=== PATIENT | female | born 1965 | race Caucasian/White ===

== ENCOUNTER 2025-07-13 10:50 | Outpatient (AMB) | payer OTHER, SELFPAY ==
--- OUTSIDE RECORDS SUMMARY | 2024-07-08 13:30 | XMS_ITS | Encounter Summary ---
Author Organization [facility] [place] [address] Care Team Providers Care Collision Center Manager Name Role Phone Brittanie Pearson MD Primary Care Provider [phone] Encounter Details Date Type Department Care Team (Latest Contact Info) Description 07/08/2024 1:30 PM EDT Hospital Encounter TH HISTORIC ENCOUNTERS EASTERN CONVERSION ONLY Age-related osteoporosis without current pathological fracture Social History Tobacco Use Types Packs/Day Years Used Date Smoking Tobacco: Never Smokeless Tobacco: Never Alcohol Use Standard Drinks/Week Comments Never 0 (1 standard drink = 0.6 oz pur e alcohol) Housing Instability Answer Date Recorde d Are you worried that in the next 2 months you may not have stable housing? Unable to respond 01/04/2025 Food Access & Nutrition Answer Date Rec orded Do you have access to a vari ety of food including fruits and vegetables? Unable to respond 01/04/2025 Health Literacy Answer Date Recorded How often do you need to hav e someone help you when you read instructions, pamphlets, or other written material from your doctor or pharmacy? Unable to respond 01/04/2025 Caregiver: How often do you need to have someone help you when you read instructions, pamphlets, or other written material from your doctor or pharmacy? Not on file 025 Financial Risk Answer Date Recorded How hard is it for you to pa y for the very basics like food, housing, medical care, and air conditioning / heating? Unable to respond 01/04/2025 Transportation Answer Date Recorded Has the lack of transportati on kept you from meetings, work, or from getting things needed for daily living? Unable to respond 01/04/2025 Has the lack of transportati on kept you from medical appointments or from getting medications? Unable to respond 01/04/2025 Social Isolation Answer Date Recorded How often do you feel lonely or isolated from those around you? Unable to respond 01/04/2025 Food Risk Answer Date Recorded Within the past 12 months we worried whether our food would run out before we got money to buy more. Unable to respond 025 Within the past 12 months th e food we bought just didn't last and we didn't have money to get more. Unable to respond 04/2025 Dependent Care Answer Date Recorded Do you need help finding or paying for care for your loved ones. For example, early childhood educator aide or elderly care for an older adult? Unable to respond 01/04/2025 Education Answer Date Recorded Do you think completing more education or training, like finishing a GED, going to college, or learning a trade, would be helpful for you? Unable to respond 01/04/2025 Employment and Income Answer Date Recor ded During the last four weeks, have you been actively looking for work? Unable to respond 01/04/2025 Living Situation Answer Date Recorded What is your living situation? Unrecognized valu e 01/04/2025 Comments No Sex and Gender Information Value Date Recorded Sex Assigned at Not on file Legal Sex Female 8:32 PM EST Gender Identity Not on file Sexual Orientation Not on file documented as of this encounter Progress Notes * Historical, Notes Results - 07/08/2024 1:30 PM EDT Pt arrives for reclast infusion with her father . Pt assessed and reports she understands she will possibly receive this yearly for her diagnosis of osteoporosis. Pt and this nurse reviewed possible side effects - pt verbalized understanding . Labs assessed - okay to treat . IV inserted, pt tolerated well. Reclast infused without issue . Line flushed and angio removed . Pt reports feeling well. Pt discharged with her father , gait steady . documented in this encounter Plan of Treatment Upcoming Encounters Date Type Department Care Team (Late st Contact Info) Description 07/22/2025 11:00 AM EDT Office Visit Internal Medicine - [place] [address] [place] [phone] Prema Lizraraga MD [address] [place] [address] 07/22/2025 1:00 PM EDT Treatment [facility] [address] [phone] Jax Pickett, SKI BASE TRIMMER 07/27/2025 11:30 AM EDT Treatment [facility] [address] [address] Dalton Matta, PT [address] [place] [address] 07/29/2025 12:30 PM EDT Treatment [facility] [address] [phone] Jax Pickett, SKI BASE TRIMMER 08/03/2025 11:30 AM EST Treatment [facility] [address] [phone] Dalton Matta, PT [address] [place] [address] 08/05/2025 10:00 AM EST Treatment [facility] [address] [address] Jax Pickett, SKI BASE TRIMMER 08/10/2025 9:00 AM EST Treatment [facility] [address] [address] Juanjo Fairbanks, SKI BASE TRIMMER 08/17/2025 9:00 AM EST Treatment [facility] [address] [address] Dalton Matta, PT [address] [place] [address] 12/26/2025 11:00 AM EDT Office Visit Endocrinology - [place] [address] [place], [place] [phone] Joann Bustos PA [address] [place], [place] documented as of this encounter Goals Goal Patient Goal Type Associated Problems Recent Progress Patient-Stated? Author feel better General Yes Dalton Matta, PT PT STG x 8 visits from [facility] on 07/06/2025 General No Dalton Matta, PT Note: [x] = goal MET [] = goal NOT MET [] Pt will improve bilaterally trunk sidebend to 28 degrees, [] Pt will report average pain level decrease of 2 /10, [] Pt will increase sitting capacity to 90 minutes, [] Pt will be able to perform full bridge in order to improve bed mobility [] Pt will improve hip add strength to 3+/5B NECK [] Pt will report a 2/10 average pain level decrase, [] Pt will improve C rotation to 40 deg to aid in looking over L shoulder, [] Pt will improve deep neck flexor strength to 10 seconds (2 at [facility]) PT LTG x 16 visits from [facility] on 07/06/2025 General No Dalton Matta, PT Note: [x] = goal MET [] = goal NOT MET [] Pt will be able to sit through a 2hr movie [] Pt will not require assist to make the bed [] Pt will wake no more than 1 x/night due to back pain Neck [x] = goal MET [] = goal NOT MET [] Pt will wake <1/night due to neck pain , [] Pt will improve shoulder ER strength to 4+/5, [] Pt will be able to look over shoulder without requiring trunk rotation, [] Pt will be able to lift cat litter box without limitations due to neck pain documented as of this encounter Procedures Procedure Name Priority Date/Time Associated Diagnosis Comments ..MISCELLANEOUS REFERENCE LAB TEST 07/08/2024 documented in this encounter Results * Miscellaneous reference lab test (07/08/2024) us Provider Onbase MD LAB BLOOD ORDERABLES Final Re sult documented in this encounter Visit Diagnoses Diagnosis Age-related osteoporosis without current pathological fracture documented in this encounter Care Teams Collision Center Manager Relationship Specialty Start Date End Date Brittanie Pearson MD PCP - General 04/24/23 01/04/25 documented as of this encounter
--- OUTSIDE RECORDS SUMMARY | 2025-07-11 15:30 | XMS_ITS | Encounter Summary ---
Author Organization [facility] Address [address] [place] [address] Care Team Providers Care Production Scheduler Name Role Phone Prema Lizarraga MD Primary Care Provider [phone] Reason for Visit * Consultation (Routine) - Authorized Specialty Diagnoses / Procedures Referred By Contac t Referred To Contact Physical Therapy Diagnoses Degenerative disc disease, cervical Degeneration of intervertebral disc of lumbar region with discogenic back pain Leroy Hazel PA 175 [facility] [address] [place] [address] Phone: tel: fax: Referral ID Status Reason Start Date Expiration Date Visits Requested Visits Authorized [id number] Authorized Specialty Services Required 06/08/2025 06/08/2026 20 20 Encounter Details Date Type Department Care Team (Latest Contact Info) Description 07/11/2025 3:30 PM EDT Treatment [facility] 175 [facility] [address] [place] [phone] Jax Pickett PTA Degeneration of cervical intervertebral disc (Primary Dx); Degeneration of intervertebral disc of lumbar region with discogenic back pain Social History Tobacco Use Types Packs/Day Years [...] care for your loved ones. For example, child welfare specialist or elderly care for an older adult? [...] as of this encounter Progress Notes * Jax Pickett, REMEDIATION PROJECT ENGINEER - 07/11/2025 3:30 PM EDT [facility] - Outpatient PHYSICAL THERAPY DAILY TREATMENT NOTE - OP Date: 07/11/2025 Visit Number: 2 Patient Name: Rosa Shah : 1965 Age: 59 y.o. Gender: female Diagnosis: ICD-10-CM ICD-9-CM 1. Degeneration of cervical intervertebral disc M50.30 722.4 2. Degeneration of intervertebral disc of lumbar region with discogenic back pain M51.360 722.52 Date of Onset/Surgery: 06/08/2025 Referring Provider: Leroy Hazel PA Insurance: Payor: [facility] MEDICARE ADVANTAGE / Plan: [employer] MEDICARE ADVANTAGE / Product Type: *No Product type* / Patient Identified by: Jax Pickett PTA Language: Speaks and understands Mexican as preferred language with no monorail operator required Medications: Medications Ordered Prior to Encounter[1] Allergies: is allergic to acetaminophen-codeine, dextrose, methadone, psyllium, psyllium husk, and sucrose. Precautions: Parkinson's, osteoporosis, fusion C 4-7. and L laminectomy with hardware R hip replacement. Limited tolerance to extension Avoid prone Fall risk: No SUBJECTIVE Subjective Report: Patient reports increased pain after last visit. She is seeing oral surgeon later this week, PCP thinks it may be TMJ Chart Reviewed: Yes Pain: 8/10 no change. TREATMENT INTERVENTION: Manual Therapy STM, MFR seated UT, cervical paraspinals HL STM, MFR TMJ, OA HL gentle cervical Rotation Assisted TPM release using lacrosse ball Attempted CP to help decrease burning pain decreased tolerance to cold approx 5 mins before discontinuing modality. ASSESSMENT/Response to Treatment Fair tolerance with DTM, MFR left side of neck. Patient seeing Oral Surgeon for assessment of teethremoval and TMJ symptoms. Patient pain is constant often promoting horrible WILEY. Progress as tolerated. Patient Education: Education provided: yes no changes this visit with HEP. Education Provided To: Patient utilizing Demonstration mode(s) of education Response to Education: Verbal Understanding PLAN POC Development/Review: No Change in the Plan of Care; Participants: Patient Interventions Time Entry: Modalities: Therapeutic procedures: Manual Therapy Time Entry: 30 Total Treatment Time: 30 mins Documentation completed by Jax Pickett PTA [1] Current Outpatient Medications on File Prior to Visit Medication Sig Dispense Refill ALPRAZolam (XANAX) 0.5 mg tablet Take 1 tablet (0.5 mg total) by mouth 1 (one) time each day. amantadine (SYMMETREL) 100 mg tablet Take 1 tablet (100 mg total) by mouth 2 (two) times a day. for30 days carbidopa-levodopa (SINEMET) 25-100 mg per tablet Take 1.5 tablets by mouth 5 (five) times a day. denosumab (PROLIA) 60 mg/mL syringe syringe Inject 1 mL (60 mg total) under the skin 1 (one) time for 1 dose. 1 mL 0 entacapone (COMTAN) 200 mg tablet Take 1 tablet (200 mg total) by mouth 3 (three) times a day. gabapentin (NEURONTIN) 100 mg capsule Take 1 capsule (100 mg total) by mouth 3 (three) times a day.90 capsule 1 Inbrija 42 mg capsule, w/inhalation device Place 2 capsules into inhaler and inhale 3 (three) timesa day if needed. levothyroxine (SYNTHROID, LEVOTHROID) 125 mcg tablet Take 1 tablet (125 mcg total) by mouth 1 (one)time each day. 90 tablet 1 sertraline (ZOLOFT) 100 mg tablet Take 2 tablets (200 mg total) by mouth 1 (one) time each day. zolpidem (AMBIEN) 10 mg tablet Take 5 mg by mouth at bedtime as needed. No current facility-administered medications on file prior to visit. documented in this encounter Plan of Treatment Upcoming Encounters Date Type Department Care Team (Late st Contact Info) Description 07/22/2025 11:00 AM EDT Office Visit Internal Medicine - [place] [address] [place] [phone] Prema Lizarraga MD [address] [place] [address] 07/22/2025 1:00 PM EDT Treatment [facility] - [address] [phone] Jax Pickett PTA 07/27/2025 11:30 AM EDT Treatment [address] [address] Dalton Matta, PT [address] [place] [address] 07/29/2025 12:30 PM EDT Treatment [address] [address] Jax Pickett, REMEDIATION PROJECT ENGINEER 08/03/2025 11:30 AM EST Treatment [address] [phone] Dalton Matta, PT [address] [place] [address] 08/05/2025 10:00 AM EST Treatment [address] [address] Jax Pickett, REMEDIATION PROJECT ENGINEER 08/10/2025 9:00 AM EST Treatment [address] [address] Juanjo Fairbanks, REMEDIATION PROJECT ENGINEER 08/17/2025 9:00 AM EST Treatment [address] [address] Dalton Matta, PT [address] [place] [address] 12/26/2025 11:00 AM EDT Office Visit Endocrinology - [place] [address] [place] [phone] Joann Bustos PA [address] [place], [place] documented as of this encounter Goals Goal Patient Goal Type Associated Problems Recent Progress Patient-Stated? Author feel better General Yes Dalton Matta, PT PT STG x [address] [facility] on 07/06/2025 General No Dalton Matta, PT [...] flexor strength to 10 seconds ([address] [facility]) PT LTG x [address] [facility] on 07/06/2025 General No Dalton Matta M, PT Note: [x] = goal MET [] [...] neck pain documented as of this encounter Visit Diagnoses Diagnosis Degeneration of cervical intervertebral disc- Primary Degeneration of intervertebral disc of lumbar region with discogenic back pain documented in this encounter Additional Health Concerns Assessment Noted Time PHQ-9 Depression Total Score: 7 01/20/20 3:55 PM EDT A fall risk assessment has been complete d for the patient 01/20/2025 10:53 AM EDT documented as of this encounter Care Teams Production Scheduler Relationship Specialty Start Date End Date Prema Lizarraga MD [address] [place] [address] PCP - General Family Medicine 01/05/25 documented as of this encounter
--- NOTE | 2025-07-13 10:52 | A.OFFVIS_ITS ---
Intake Visit Reasons: 6 mo fu Allergies psyllium (From Metamucil) Allergy (Unknown, Verified 07/13/25 10:52) Unknown Medication List - Last Reconciled 07/13/25 by Katie Alvarado CNP alprazolam 0.5 mg PO DAILY PRN amantadine HCl 100 mg PO BID carbidopa-levodopa 25-100 mg orally 1.5 tablets five times a day; entacapone 200 mg PO QID gabapentin 100 mg PO TID levodopa (Inbrija) mg inhalation levothyroxine 125 mcg PO DAILY sertraline 200 mg PO DAILY zolpidem 5 mg PO DAILY PRN HPI Comments Details: She was having more involuntary body movements and swaying. No falls. Has trouble turning in bed. In PT for neck pain. She is right-handed and says handwriting is terrible again. She needs family to fill out paperwork for her. She is unable to use computer mouse with right hand and has been having to use left hand. Unpredictable off periods, which she calls sloth periods. Using Inbrija between 0-3x/day as needed which works within 15 minutes. Taking carbidopa-levodopa 25-100mg 1.5 tablets five times a day, entacapone 200mg four times a day, and amantine 100mg twice a day. Previously was using Inbrija 1x/day or less, usually twice a week, works in 10- 15 minutes. Has unpredictable off periods. Still getting the sloth and at times needs to use a cane. She can suddenly get an off period where she can barely move. It can last up to 2 hours. Previously, dyskinesia was better. She had multiple cervical and lumbar spine surgeries over the years. Fusion with hardware who was hospitalized in 2009 and was diagnosed with various things at one point, possible MS but then in 2013 was diagnosed with Parkinson's disease with right-sided tremor and increased tone. 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 At one time should also developed a right foot drop and has calf atrophy on the right, probably related to lumbar radiculopathy. She has periods where she can't move what she calls moving like a sloth. 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 [facility] Medical History (Updated 07/13/25 @ 11:03 by Katie Alvarado CNP) Kidney stone Depression Anxiety Hypothyroidism Surgical History (Updated 07/13/25 @ 11:03 by Katie Alvarado CNP) History of total right knee replacement S/P carpal tunnel release S/P lumbar discectomy S/P cervical discectomy Review of Systems Const Denies chills, Denies daytime sleepiness, Reports difficulty sleeping, Denies fatigue, Denies fever(s), Denies frequent falls, Denies headache(s), Denies increased appetite, Denies poor appetite, Denies snoring, Denies weakness, Denies weight gain and Denies weight loss Eyes Denies loss of vision ENT Denies vertigo, Denies dizziness, Denies headache(s) and Reports neck pain Card Denies chest pain at rest, Denies chest pain with activity, Denies syncope, Denies leg edema, Denies palpitations, Denies dyspnea and Denies dyspnea on exertion Resp Denies cough, Denies dyspnea, Denies dyspnea on exertion and Denies snoring GI Denies abdominal pain, Denies constipation, Denies heartburn, Denies diarrhea and Denies nausea Denies urinary frequency, Denies urinary incontinence and Denies urinary urgency Musc Reports abnormal gait (balance difficulty), Reports back pain, Reports myalgias, Reports arthralgias, Reports neck pain, Denies numbness and Denies tingling Neuro Reports abnormal gait (balance difficulty), Denies vertigo, Denies dizziness, Denies syncope, Denies frequent falls, Denies headache(s), Denies lack of coordination, Denies loss of vision, Denies memory loss, Denies numbness, Denies Other visual disturbances, Denies restless legs, Denies seizure-like activity, Denies tingling, Denies paresthesias, Reports tremor(s) and Denies weakness Psych Reports anxiety, Reports depression, Denies auditory hallucinations, Denies memory loss and Denies visual hallucinations Endo Denies fatigue and Denies palpitations Physical Exam Const Other: General Appearance:? normal, in no acute distress. Heart:? S1, S2 normal, no murmurs. Lungs:? clear anteriorly and posteriorly. Musculoskeletal:? normal. Extremities:? no edema. Psych:? alert, oriented, cognitive function intact, cooperative with exam. Neuro Other: Abnormal Neurological Findings:?Moderate dyskinetic movements of her limbs, trun k, and neck. Minimally increased tone on R side with slight cogwheeling at the wrist. Atrophy of R calf with absent R ankle reflex. Mental Status: alert and oriented X 3. Normal attention, orientation, memory, and affect. Cranial Nerves: Pupils are equal, round, and reactive to light. External ocular muscles are intact. Visual hardy are full, no ptosis. Face is symmetrical, no facial weakness or droop. Facial sensations are normal. Tongue protrudes in midline. Palate elevates symmetrically. Shoulder shrugging is normal Motor Examination: As above. Sensory Exam: Normal light touch, temperature, pinprick, vibration, and joint- position sensations. Rhomberg sign is absent. Coordination: No ataxia. No titubation. Gait Exam: Within normal limits. Cerebellar Signs: [id number] is okay. Extrapyramidal System: As above. Speech: Normal. Assessment & Plan Assessment & Plan (1) Parkinsons disease: Code(s): G20.A1 - Parkinson's disease without dyskinesia, without mention of fluctuations Category: Medical Qualifiers: Dyskinesia presence: with dyskinesia Fluctuating manifestations: with fluctuating manifestations Qualified Code(s): G20.B2 - Parkinson's disease with dyskinesia, with fluctuations Plan: Decrease carbidopa-levodopa 25-100mg alternate 1.5 tablets and 1 tablet for five doses/day (total of 6.5 tabs/day). Continue entacapone 200mg 1 tablet four times a day. Continue amantadine 100mg 1 capsule twice a day. Continue Inbrija 42mg inhale contents of 2 capsules via inhalation device 1- 2x/day as needed #60 for 30 days Medications: New carbidopa-levodopa 25-100 mg (Sinemet) 1 tab orally alternate 1.5 tabs and 1 tab five times a day for total of 6.5 tabs/day; 585 tabs 1RF 90 days Coding Level of Care Code Est Pt Level 4 (23811) Diagnoses Parkinson's disease with dyskinesia and fluctuating manifestations G20.B2 Dyskinesia presence: with dyskinesia Fluctuating manifestations: with fluctuating manifestations
--- OUTSIDE RECORDS SUMMARY | 2025-07-13 13:13 | XMS_ITS | Clinical Summary ---
Author Organization [facility] [address] [place] [address] [place] [phone] Phone Care Team Providers Care Mechanic Foreman Name Role Phone Prema Lizarraga MD Primary Care Provider [phone] Allergies Active Allergy Reactions Criticality Noted Date Comments Acetaminophen-Codeine Itching High 01/10/2025 Dextrose Anaphylaxis High 11/29/2004 Methadone Pain High 01/10/2025 Psyllium Anaphylaxis High 11/04/2023 Psyllium Husk Anaphylaxis High 11/29/2004 Sucrose Anaphylaxis High 11/29/2004 Medications entacapone (COMTAN) 200 mg tablet Take 1 tablet (200 mg total) by mouth 3 (three) times a day. 05/31/20 24 Active amantadine (SYMMETREL) 100 mg tablet Take 1 tablet (100 mg total) by mouth 2 (two) times a day. for 30 days Active sertraline (ZOLOFT) 100 mg tablet Take 2 tablets (200 mg total) by mouth 1 (one) time each day. 06/15/20 24 Active ALPRAZolam (XANAX) 0.5 mg tablet Take 1 tablet (0.5 mg total) by mouth 1 (one) time each day. Active zolpidem (AMBIEN) 10 mg tablet Take 5 mg by mouth at bedtime as needed. Active carbidopa-levodopa (SINEMET) 25-100 mg per tablet Take 1.5 tablets by mouth 5 (five) times a day. Active Inbrija 42 mg capsule, w/inhalation device Place 2 capsules into inhaler and inhale 3 (three) times a day if needed. Active levothyroxine (SYNTHROID, LEVOTHROID) 125 mcg tablet Take 1 tablet (125 mcg total) by mouth 1 (one) time each day. 90 tablet 1 03/19/20 25 Active gabapentin (NEURONTIN) 100 mg capsuleIndications :Degenerative disc disease, cervical,Degenerat ion of intervertebral disc of lumbar region with discogenic back pain Take 1 capsule (100 mg total) by mouth 3 (three) times a day. 90 capsule 1 06/14/20 25 Active denosumab (PROLIA) 60 mg/mL syringe syringeIndications :Osteoporosis without current pathological fracture, unspecified osteoporosis type Inject 1 mL (60 mg total) under the skin 1 (one) time for 1 dose. 1 mL 06/13/20 25 Active gabapentin (Neurontin) 100 mg capsuleIndications :Degenerative disc disease, cervical,Degenerat ion of intervertebral disc of lumbar region with discogenic back pain Take 1 capsule (100 mg total) by mouth 3 (three) times a day. 90 each 05/13/20 25 025 Discontinued Active Problems Problem Noted Date Diagnosed Date Right lower quadrant abdominal mass 05/13/2025 Assessment & Plan (05/13/2025 2:55 PM EDT): - Lump could be a lipoma or muscle tension; it is not painful and only appears at night - Advised to monitor the lump for any changes in size or pain - If it becomes larger or painful, an ultrasound will be considered Degeneration of intervertebr al disc of lumbar region with discogenic back pain 04/29/2025 Assessment & Plan (06/08/2025 4:35 PM EDT): Ms. Shah describes chonic transverse low back pain without radiation to the legs. She is neurologically intact in the lower extremities. An MRI of the lumbar spine from June 01, 2025 shows evidence of her prior Coflex devices at L3-4 and L4-5. A little bit of anterolisthesis at L4-5. Generative changes in the discs and facets resulted in moderate to severe canal and foraminal stenosis at L4-5. She would not want to consider any kind of surgery at this time and I would agree with her. I did give her a prescription for physical therapy directed at the low back. We are also going to obtain some x-rays of her lumbar spine to make sure there is no abnormal motion with flexion or extension views. She will follow-up with us after the physical therapy. Assessment & Plan (05/13/2025 2:54 PM EDT): - Increase current low dose of gabapentin to three times daily to alleviate discomfort - MRI scheduled for 06/01/2025 to further investigate the cause of pain - Prescription for gabapentin sent to pharmacy - Will look into PA for lidocaine patch Assessment & Plan (04/29/2025 3:04 PM EDT): - Likely due to previous surgeries and injuries, exacerbated by history of spinal cord changes - Significant pain in lumbar region, affecting daily activities and sleep - Order MRI of lower back for further evaluation - Initiate physical therapy for lumbar spine - Prescribe Gabapentin 100 mg at night, with potential for dosage increase based on tolerance - Prescribe lidocaine patch 5% for additional pain management Degenerative disc disease, cervical 04/29/2025 Assessment & Plan (06/08/2025 4:29 PM EDT): Ms. Shah describes neck pain more on the left side with radiation to the jaw and the ear. She also has some pain in the right triceps that travels down to the right posterior wrist. She is status post C4-7 anterior cervical fusion. She is neurologically intact other than the cardinal motor signs associated with her Parkinson's disease. Can MRI the cervical spine on 06/01/2025 revealed that her C4-C7 anterior cervical fusion is intact. She has multilevel degenerative changes most significant at C4-5 where there is severe bilateral foraminal stenosis and moderate canal stenosis. I told her that I thought the left jaw and ear symptoms were likely related to TMJ. She is actually seeing her dentist tomorrow and will discuss it with them. I am going to check some x-rays of the cervical spine and send her for physical therapy for her neck and low back. She will follow-up with us afterward. Assessment & Plan (04/29/2025 3:00 PM EDT): - Likely due to previous surgeries and injuries, exacerbated by history of degenerative disc disease - Significant pain in cervical spine, shoulders, and arms, with associated numbness in right hand - Order MRI of cervical spine for further evaluation - Referral to neurosurgery for follow-up consultation - Initiate physical therapy for cervical spine - Prescribe Gabapentin 100 mg at night, with potential for dosage increase based on tolerance - Prescribe lidocaine patch 5% for additional pain management Lumbar postlaminectomy syndrome 03/08/2025 Left arm swelling 01/28/2025 Assessment & Plan (01/28/2025 8:42 AM EDT): - Lump on left arm likely a reaction to pneumonia vaccine administered on 01/20/2025 - Lump appears to be improving compared to initial photo - Apply ice to affected area once daily - Alternate between ice and warm compresses - Monitor lump for any changes in size - Return for further evaluation if lump increases in size Medicare annual wellness visit, subsequent 01/20 Assessment & Plan (01/20/2025 12:55 PM EDT): - Last mammogram in February 2024, due for another one - Last Pap smear in 2013, with past abnormal results - Last colonoscopy in March 2023, follow-up recommended in five years - Has not received shingles vaccine, advised to get it at an outside pharmacy Anxiety 01/19/2025 Elevated ratio of cholestero l to high density lipoprotein (HDL) 01/19/2025 Hydronephrosis 01/19/2025 Thoracic degenerative disc disease 01/10/2025 Assessment & Plan (01/20/2025 12:54 PM EDT): - Reports improvement since last visit but still experiences occasional pain - Uses back brace and topical analgesics for relief - Physical therapy expected to strengthen back and alleviate pain Assessment & Plan (01/19/2025 4:08 PM EDT): Ms. Shah describes pain with mid back pain a couple of weeks ago. Denies radiation around to the anterior chest. Pain does not have any correlation with her breathing pattern. She has a history of multiple cervical spine and lumbar surgeries. She says that in the past she had an MRI in [place] that showed a thoracic disc herniation. Is neurologically intact and is not myelopathic. X-rays of the thoracic spine from [place] dated January 10, 2025 show multilevel degenerative changes in the thoracic spine with loss of disc height and exaggerated kyphosis. I gave her prescription for physical therapy. If she is not better after the therapy we can certainly consider a new MRI. Assessment & Plan (01/10/2025 1:25 PM EDT): - Severe back pain began night, rated 10/10 in intensity - History of degenerative disc disease with disc bulge around T8-T9 (MRI from 2010) - Likely due to underlying condition - Using Flexeril 10 mg at night and Tylenol 500 mg as needed for pain relief - Continue with Tylenol and warm compresses - Lidocaine patch may be used if pain becomes intolerable, she can not tolerate NSAIDS secondary to nausea. - Order x-ray of thoracic given bony tenderness on exam today - Referral to physical therapy - Referral to neurosurgeon for further evaluation Encounter to establish care 01/05/2025 Assessment & Plan (01/05/2025 3:51 PM EDT): Patient is a 59 y.o. female with pmhx hypothyroidism, osteoporosis, anxiety/depression, Parkinson's disease who presents to establish care. Vital signs notable for blood pressure in the lower range and physical exam wnl - Last mammogram conducted in February 2024 - Wellness visit to be scheduled - Blood work to be ordered today to assess thyroid levels and cholesterol levels - Advised to fast prior to blood work, abstaining from food intake after midnight Hypothyroidism 11/04/2023 Insomnia 11/04/2023 Kidney stone 11/04/2023 Major depressive disorder in partial remission (CMS/[facility] V24) 11/04/2023 Assessment & Plan (01/05/2025 3:54 PM EDT): - Currently seeing a psychologist twice a week and a nurse practitioner for psychiatric medication management - Medications: Zoloft 200 mg daily, Ambien 5 mg as needed for sleep, Xanax 1 mg as needed for anxiety - Experiences severe depression episodes - Recently had a four-day episode where she stayed in bed - Encouraged to engage in physical activities such as boxing for Parkinson's - Plans to discuss physical activities with neurologist OCD (obsessive compulsive disorder) 11/04/2023 Osteoporosis 11/04/2023 Assessment & Plan (05/13/2025 2:55 PM EDT): - Scheduled to see an instrument mechanics supervisor in 05/2025 to start osteoporosis medication due to adverse reaction to infusion - Last bone density screening was in 2023 Assessment & Plan (01/20/2025 12:56 PM EDT): - She was previously on Reclast, follows with endo - Test Examiner plans to switch to oral medication after checking vitamin D levels in February or March Assessment & Plan (01/05/2025 3:52 PM EDT): - Diagnosed last year after previously having osteopenia - Had an infusion in June but experienced a bad reaction - Test Examiner plans to start her on medication instead of another infusion in the fall Parkinson's disease ([facility] V24, [facility] V28) 0 11/04/2023 Assessment & Plan (01/20/2025 12:55 PM EDT): - Remains fairly independent in activities of daily living (dressing, bathing, driving) - Manages symptoms with carbidopa-levodopa, takes extra doses during off times to drive safely Assessment & Plan (01/05/2025 3:53 PM EDT): - Diagnosed in 2013 after initially being misdiagnosed with MS - Currently stable on medications: carbidopa-levodopa, amantadine 100 mg twice a day, Inbrija inhaler for off time, Comtan (entacapone) 200 mg - Sees neurologist every four months - Follow-up appointment next week Anxiety and depression 11/04/2023 PTSD (post-traumatic stress disorder) 11/04/2023 History of total right hip replacement Chronic back pain 01/09/2021 Hyperlipidemia 01/09/2021 Encounters Date Type Department Care Team Description 07/11/2025 3:30 PM EDT Treatment [address] [phone] Jax Pickett PTA Degeneration of cervical intervertebral disc (Primary Dx); Degeneration of intervertebral disc of lumbar region with discogenic back pain 07/06/2025 3:45 PM EDT Evaluation [address] [phone] Dalton Matta PT Degeneration of cervical intervertebral disc (Primary Dx); Degeneration of intervertebral disc of lumbar region with discogenic back pain 07/05/2025 Results Follow-Up Endocrinology - [address] [phone] MD 06/16/2025 Telephone Neurosurgery [address] [phone] Leroy Hazel PA 06/13/2025 11:57 AM EDT - 06/13/2025 11:59 PM EDT Hospital Encounter XRAY - [address] [phone] Degeneration of intervertebral disc of lumbar region with discogenic back pain Discharge Disposition: Home or Self Care 06/13/2025 11:55 AM EDT - 06/13/2025 11:59 PM EDT Hospital Encounter XRAY - [address] [phone] Degenerative disc disease, cervical Discharge Disposition: Home or Self Care 06/13/2025 11:15 AM EDT Office Visit Endocrinology - [address] [phone] MD Osteoporosis without current pathological fracture, unspecified osteoporosis type (Primary Dx) 06/08/2025 11:30 AM EDT Office Visit Neurosurgery [address] [phone] Leroy Hazel, GODWIN Degenerative disc disease, cervical; Degeneration of intervertebral disc of lumbar region with discogenic back pain 06/01/2025 11:17 AM EDT - 06/01/2025 11:59 PM EDT Hospital Encounter Radiology Department - [place] [phone] Degeneration of intervertebral disc of lumbar region with discogenic back pain Discharge Disposition: Home or Self Care 06/01/2025 11:17 AM EDT - 06/01/2025 11:59 PM EDT Hospital Encounter Radiology Department - [address] [phone] Degenerative disc disease, cervical Discharge Disposition: Home or Self Care 05/19/2025 Telephone Neurosurgery [place] - [address] [place] [address] Anel Loredo MA 05/13/2025 2:30 PM EDT Office Visit Internal Medicine - [place] [address] [place] [address] Prema Lizarraga MD Degeneration of intervertebral disc of lumbar region with discogenic back pain (Primary Dx); Degenerative disc disease, cervical; Osteoporosis, unspecified osteoporosis type, unspecified pathological fracture presence; Right lower quadrant abdominal mass 05/13/2025 Telephone Internal Medicine - [place] [address] [place] [phone] Val Scott RN 04/29/2025 1:00 PM EDT Office Visit Internal Medicine - [place] [address] [place] [address] Prema Lizarraga MD Degenerative disc disease, cervical (Primary Dx); Degeneration of intervertebral disc of lumbar region with discogenic back pain from Last 3 Months Immunizations Immunization Administration Dates Next Due Influenza, Unspecified 07/01/2023 Pneumococcal conjugate 20 va lent (Prevnar 20, PCV 20) 2mo and older 01/20/2025 Tdap Tetanus diptheria acell ular pertussis (Boostrix; Adacel) 7yo and older 12/03/2023,12/31/2007 Surgical History Surgery Date Site/Laterality Comments CARPAL TUNNEL RELEASE 09/23/2022 PROCEDURE: HISTORICAL CARPAL TUNNEL REL; COMMENT: Good finger/carpal tunnel/compress nerve surgery HIP ARTHROPLASTY 01/22/2021 PROCEDURE: HISTORICAL HIP REPLACEMENT; COMMENT: Right side LUMBAR LAMINECTOMY 2013 PROCEDURE: HISTORICAL LUMB LAMINECTOMY; COMMENT: L3, L4 and L5 CERVICAL LAMINECTOMY 2012 PROCEDURE: HISTORICAL CERV LAMINECTOMY; COMMENT: C4, C4 C5-C6-C7 JOINT REPLACEMENT SPINE SURGERY BREAST CYST ASPIRATION STEREOTACTIC CORE BIOPSY Medical History Medical History Date Comments Anxiety and depression DX:Anxiet y and depression Parkinson's disease ([facility] V24, [facility] V28) DX:Parkinson's disease (HCC) Hypothyroidism DX:Hypothyroidis m Insomnia DX:Insomnia OCD (obsessive compulsive disorder) DX:OCD (obsessive compulsive disorder) Kidney stone DX:Kidney stone Osteoporosis DX:Osteoporosis Arthritis Family History Medical History Relation Name Comments Inflammatory bowel disease Brother 1 Robby Warren ied from Colon cancer age 34. Had Chrones Inflammatory bowel disease Brother 2 Barry Sanchez ad colostomy bag. Had Colitis Cancer Father Manuel Prostate and sk in cancer survivor Cancer Mother Brain and Lung a t age 55 Relation Name Status Comments Brother 1 Rboby Brother 2 Barry Father Manuel Mother Brain and Lung Social History Tobacco Use Types Packs/Day Years Used Date Smoking Tobacco: Never Smokeless Tobacco: Never Tobacco Cessation:Counseling Given: Not Answered Alcohol Use Standard Drinks/Week Comments Never 0 [...] care for your loved ones. For example, rn maternal child or elderly care for an older adult? [...] on file Sexual Orientation Not on file Obstetrics History Last Filed Vital Signs Vital Sign Reading Time Taken Comments Blood Pressure 111/50 06/13/2025 11:21 AM EDT Pulse 65 06/13/2025 11:21 AM EDT Temperature 36.4 C (97.6 F) 05/13/2025 2:10 PM EDT Respiratory Rate 13 06/13/2025 11:21 AM EDT Oxygen Saturation 98% 05/13/2025 2:10 PM EDT Inhaled Oxygen Concentration - - Weight 59.9 kg (132 lb) 06/13/2025 11:21 AM EDT Height 160 cm (5' 3 ) 06/13/2025 11:21 AM EDT Body Mass Index 23.38 06/13/2025 11:21 AM EDT Plan of Treatment Upcoming Encounters Date Type Department Care Team (Late st Contact Info) Description 07/22/2025 11:00 AM EDT Office Visit Internal Medicine - [place] [address] [place] [address] Prema Lizarraga MD [address] [address] 07/22/2025 1:[address] [facility] [address] [phone] Jax Pickett, VICE PRESIDENT OF PRODUCT MARKETING 07/27/2025 11:[address] [facility] [address] [phone] Dalton Matta, PT 175 [place] [address] 07/29/2025 12:30 PM EDT Treatment [address] [phone] Jax Pickett, VICE PRESIDENT OF PRODUCT MARKETING 08/03/2025 11:[address] [facility] [address] [phone] Dalton Matta, PT 175 [place] [address] 08/05/2025 10:00 AM EST Treatment [address] [phone] Jax Pickett, VICE PRESIDENT OF PRODUCT MARKETING 08/10/2025 9:[address] [facility] [address] [phone] Juanjo Fairbanks, VICE PRESIDENT OF PRODUCT MARKETING 08/17/2025 9:00 AM EST Treatment [address] [phone] Dalton Matta, PT 175 [place] [address] 12/26/2025 11:00 AM EDT Office Visit Endocrinology - [place] [address] [place] [address] Joann Bustos PA [address] [place] [address] Health Maintenance Due Date Last Done Comments Zoster Vaccines (1 of 2) 2013 Cervical Cancer Screening: P ap Smear 11/30/2016 11/30/2013 HIV Screening 10/24/2023 Hepatitis C Screening 10/24/2023 COVID-19 Vaccine (1 - 2023-2 5 season) 2025 Influenza Vaccine (#1) 2025 07/01/2023 Social Influencers of Health Screening 01/04/2026 01/04/2025 Medicare Annual Wellness Visit 01/20/2026 01/20/2025 Breast Cancer Screening 03/09/2027 03/09/20, 03/19/2024 Cholesterol Screening (Lipid Panel) 01/18/2030 01/18/2025, 12/16/2023 Colorectal Cancer Screening: Colonoscopy 04/25/2033 04/25/2023 DTaP,Tdap,and Td Vaccines (3 - Td or Tdap) 12/02/2033 12/03/2023, 12/31/2007 Osteoporosis Screening (Bone Density Screening) 03/08/2034 03/08/2024 RSV Immunization Adult Patients (1 - 1-dose 75+ series) 2038 Depression Screening Completed 01/19/2025 Pneumococcal Vaccine: 50+ Years Completed 01/20/2025 HIB Vaccines Aged Out No longer eligi ble based on patient's age to complete this topic HPV Vaccines Aged Out No longer eligi ble based on patient's age to complete this topic Hepatitis A Vaccines Aged Out No long er eligible based on patient's age to complete this topic Hepatitis B Vaccines Aged Out No long er eligible based on patient's age to complete this topic IPV Vaccines Aged Out No longer eligi ble based on patient's age to complete this topic MMR Vaccines Aged Out No longer eligi ble based on patient's age to complete this topic Meningococcal ACWY Vaccine Aged Out N o longer eligible based on patient's age to complete this topic Meningococcal B Vaccine Aged Out No l onger eligible based on patient's age to complete this topic RSV Immunization Patients Under 20 months Aged Out No longer eligible b ased on patient's age to complete this topic Varicella Vaccines Aged Out No longer eligible based on patient's age to complete this topic Goals Goal Patient Goal Type Associated Problems Recent Progress Patient-Stated? Author feel better General Yes Dalton Matta, PT PT STG x 8 visits from [facility] on 07/06/2025 General No Dalton Matta, [...] flexor strength to 10 seconds (2 at [facility]) PT LTG x 16 visits from [facility] on 07/06/2025 General No Dalton Matta, [...] box without limitations due to neck pain Procedures Procedure Name Priority Date/Time Associated Diagnosis Comments CREATININE, SERUM Routine 06/23/2025 7:5 2 AM EDT Osteoporosis without current pathological fracture, unspecified osteoporosis type BUN Routine 06/23/2025 7:52 AM EDT Osteoporosis without current pathological fracture, unspecified osteoporosis type VITAMIN D 25 HYDROXY Routine 06/23/2025 7:52 AM EDT Osteoporosis without current pathological fracture, unspecified osteoporosis type ALBUMIN Routine 06/23/2025 7:52 AM EDT Osteoporosis without current pathological fracture, unspecified osteoporosis type CALCIUM Routine 06/23/2025 7:52 AM EDT Osteoporosis without current pathological fracture, unspecified osteoporosis type XR LUMBAR SPINE 4+ VIEWS Routine 06/13/2025 12:20 PM EDT Degeneration of intervertebral disc of lumbar region with discogenic back pain XR CERVICAL SPINE 4-5 VIEWS Routine 06/13/2025 12:19 PM EDT Degenerative disc disease, cervical VITAMIN D 25 HYDROXY Routine 06/01/2025 12:52 PM EDT Osteoporosis without current pathological fracture, unspecified osteoporosis type MR LUMBAR SPINE WO AND W CONTRAST Routine 06/01/2025 12:34 PM EDT Degeneration of intervertebral disc of lumbar region with discogenic back pain MR CERVICAL SPINE WO CONTRAST Routine 06/01/2025 12:03 PM EDT Degenerative disc disease, cervical MG MAMMO DIGITAL SCREENING W MARC BILAT Routine 03/09/2025 1:26 PM EDT Breast cancer screening by mammogram LIPID PANEL WITH REFLEX TO DIRECT LDL Routine 01/18/2025 8:20 AM EDT Hypothyroidism, unspecified type Anxiety and depression Osteoporosis without current pathological fracture, unspecified osteoporosis type Thoracic degenerative disc disease Encounter to establish care [facility] DEXA AXIAL SKELETON Routine 03/08/2024 3:38 PM EDT Age-related osteoporosis without current pathological fracture HM COLONOSCOPY Routine 04/25/2023 HM PAP SMEAR Routine 11/30/2013 from Last 3 Months or Most Recently Relevant to Health Maintenance Results * Creatinine (06/23/2025 7:52 AM EDT) Pathologist [facility] Creatinine 0.89 0.50 - 1.10 mg/dL LAB CHEMISTRY METHOD 06/23/2025 11:30 AM EDT [facility] eGFR 74 >=60 mL/min/1. 73m2 LAB CHEMISTRY METHOD 06/23/2025 11:30 AM EDT [facility] Comment:Calculation based on the Chronic Kidney Disease Epidemiology Collaboration (CKD-EPI) equation refit without adjustment for race. Blood Venous blood specimen / Unknown Venipuncture / Unknown 06/23/2025 7:52 AM EDT 06/23/2025 7:[address] MD LAB BLOOD ORDERABLES Final Resul t Performing Organization Address City/[facility]/ZIP Co de Phone Number [facility] [address] [place] [address], * Vitamin D 25 hydroxy (06/23/2025 7:52 AM EDT) Only the most recent of2 resultswithin the time period is included. [facility] Vit D, 25-Hydroxy 39.0 30.0 - 80.0 ng/mL LAB CHEMISTRY METHOD 06/23/2025 12:02 PM EDT [facility] Blood Venous blood specimen / Unknown Venipuncture / Unknown 06/23/2025 7:52 AM EDT 06/23/2025 7:[address] MD LAB BLOOD ORDERABLES Final Resul t [facility] [address] [place] [address], [place] [phone] * BUN (06/23/2025 7:52 AM EDT) [facility] BUN 20 5 - 25 mg/dL LAB CHEMISTRY METHOD 06/23/2025 11:30 AM EDT [facility] Blood Venous blood specimen / Unknown Venipuncture / Unknown 06/23/2025 7:52 AM EDT 06/23/2025 7:[address] MD LAB BLOOD ORDERABLES Final Resul t Performing Organization Address City/[facility]/ZIP Co de Phone Number [facility] [address] [place] [address], [place] [phone] * Calcium (06/23/2025 7:52 AM EDT) Calcium 9.3 8.5 - 10.5 mg/dL LAB CHEMISTRY METHOD 06/23/2025 11:30 AM EDT [facility] Blood Venous blood specimen / Unknown Venipuncture / Unknown 06/23/2025 7:52 AM EDT 06/23/2025 7:[address] MD LAB BLOOD ORDERABLES Final Resul t Performing Organization Address [facility]/ZIP Co de Phone Number [facility] [address] [place] [address], [place] [phone] * Albumin (06/23/2025 7:52 AM EDT) Albumin 4.2 3.2 - 5.0 g/dL LAB CHEMISTRY METHOD 06/23/2025 11:30 AM EDT [facility] Blood Venous blood specimen / Unknown Venipuncture / Unknown 06/23/2025 7:52 AM EDT 06/23/2025 7:[address] MD LAB BLOOD ORDERABLES Final Resul t [facility] [address] [place] [address], [place] [phone] * XR Lumbar Spine 4+ Views (06/13/2025 12:20 PM EDT) Anatomical Region Laterality Modality Spine, L-spine Radiographic Lottie ging 06/13/2025 11:4 6 PM EDT Narrative 06/13/2025 11:51 PM EDT Lumbosacral spine, 7 views including AP, oblique views as well as some lateral views with neutral position as well as flexion and extension. There are post operative changes in the lumbosacral spine with some posterior fusion of spinal processes from L3 to S1 inclusively. Surgical hardware is intact. There is a 1.2 cm anterior displacement of L4 over L5 with neutral position, 1.2 cm with flexion and 1.2 cm with extension. There are degenerative changes in the facet joints from L3-4 to L5-S1. There are discogenic osteophytes at multiple levels. There is narrowing of the disc spaces at are L3-4 L4-5 and L5-S1 levels. No fractures or dislocations. Incidental findings of constipation. CONCLUSIONS: Postsurgical and degenerative changes as detailed. 1.2 cm anterior displacement of L4 over L5. No abnormal mobility with flexion and extension. -------- FINAL REPORT -------- Dictated By: Alissa Bryan Dictated Date: 06/13/2025 23:46 ET Assigned Physician: Alissa Bryan Reviewed and Electronically Signed By: Alissa Bryan Signed Date: 06/13/2025 23:51 ET Workstation ID: [id number] Transcribed By: Self Edit Transcribed Date: 06/13/2025 23:46 ET Procedure Note Alissa Bryan MD - 06/13/2025 Lumbosacral spine, 7 views including AP, oblique views as well as somelateral views with neutral position as well as flexion and extension. There are post operative changes in the lumbosacral spine with someposterior fusion of spinal processes from L3 to S1 inclusively. Surgicalhardware is intact. There is a 1.2 cm anterior displacement of L4 over L5 with neutralposition, 1.2 cm with flexion and 1.2 cm with extension. There are degenerative changes in the facet joints from L3-4 to L5-S1.There are discogenic osteophytes at multiple levels. There is narrowing ofthe disc spaces at are L3-4 L4-5 and L5-S1 levels. No fractures ordislocations. Incidental findings of constipation. CONCLUSIONS: Postsurgical and degenerative changes as detailed. 1.2 cmanterior displacement of L4 over L5. No abnormal mobility with flexion andextension. -------- FINAL REPORT -------- Dictated By: Alissa Bryan Dictated Date: 06/13/2025 23:46 ET Assigned Physician: Alissa Bryan Reviewed and Electronically Signed By: Alissa Bryan Signed Date: 06/13/2025 23:51 ET Workstation ID: [id number] Transcribed By: Self Edit Transcribed Date: 06/13/2025 23:46 ET us Leroy CONNELLY IMG XR PROCEDURES Final Resul t * XR Cervical Spine 4-5 Views (06/13/2025 12:19 PM EDT) Anatomical Region Laterality Modality Spine, C-spine Radiographic Lottie ging 06/13/2025 11:4 2 PM EDT Narrative 06/13/2025 11:45 PM EDT Cervical spine, 4 views, including AP view as well as some lateral view with neutral position, flexion and extension. Comparison with plain films of the cervical spine from 01/18/2025. Again noted is straightening of the usual cervical lordosis probably due to muscle spasm. There are post operative changes with anterior fusion at C4-5 and C6-7 levels with stable position of the surgical hardware. There are degenerative changes in the facet and uncovertebral joints at multiple levels, unchanged. Images obtained with flexion and extension revealed no abnormal mobility. There is no prevertebral soft tissue swelling. CONCLUSIONS: Muscle spasm. Multilevel degenerative changes. Post operative changes with stable appearance of the surgical hardware. No abnormal mobility with flexion and extension. -------- FINAL REPORT -------- Dictated By: Alissa Bryan Dictated Date: 06/13/2025 23:42 ET Assigned Physician: Alissa Bryan Reviewed and Electronically Signed By: Alissa Bryan Signed Date: 06/13/2025 23:45 ET Workstation ID: [id number] Transcribed By: Self Edit Transcribed Date: 06/13/2025 23:42 ET Procedure Note Alissa Bryan MD - 06/13/2025 Cervical spine, 4 views, including AP view as well as some lateral viewwith neutral position, flexion and extension. Comparison with plain films of the cervical spine from 01/18/2025. Againnoted is straightening of the usual cervical lordosis probably due tomuscle spasm. There are post operative changes with anterior fusion atC4-5 and C6-7 levels with stable position of the surgical hardware. Thereare degenerative changes in the facet and uncovertebral joints at multiplelevels, unchanged. Images obtained with flexion and extension revealed noabnormal mobility. There is no prevertebral soft tissue swelling. CONCLUSIONS: Muscle spasm. Multilevel degenerative changes. Post operativechanges with stable appearance of the surgical hardware. No abnormalmobility with flexion and extension. -------- FINAL REPORT -------- Dictated By: Alissa Bryan Dictated Date: 06/13/2025 23:42 ET Assigned Physician: Alissa Bryan Reviewed and Electronically Signed By: Alissa Bryan Signed Date: 06/13/2025 23:45 ET Workstation ID: [id number] Transcribed By: Self Edit Transcribed Date: 06/13/2025 23:42 ET us Leroy CONNELLY IMG XR PROCEDURES Final Resul t * MR Lumbar Spine wo and w Contrast (06/01/2025 12:34 PM EDT) Anatomical Region Laterality Modality L-spine, Spine Magnetic Resonan ce 06/07/2025 1:00 PM EDT Impressions 06/07/2025 6:17 PM EDT Multilevel degenerative changes and postsurgical changes. Findings are most pronounced at L4-5 where severe spinal canal narrowing is present. Also, possible compression on the right exiting nerve root at L4-5. Moderate to severe spinal canal narrowing at L2-3. POS - [id number] -------- FINAL REPORT -------- Dictated By: Stephanie Julian Dictated Date: 06/07/2025 13:00 ET Assigned Physician: Stephanie Julian Reviewed and Electronically Signed By: Stephanie Julian Signed Date: 06/07/2025 18:17 ET Workstation ID: [id number] Transcribed By: Self Edit Transcribed Date: 06/07/2025 13:32 ET Narrative 06/07/2025 6:17 PM EDT EXAM: Lumbar spine MRI HISTORY: Worsening low back pain. History of previous surgery. COMPARISON: Prior report dated 10/23/2020, images not available for direct comparison. CORRELATION: None TECHNIQUE: Exam performed on a 1.5 Rafia high-field MRI scanner. Multiplanar imaging performed without and with contrast. 11 cc of Dotarem administered intravenously. FINDINGS: Numbering of the vertebral bodies is based on the assumption that inferior most disc space is L5-S1. Interspinous process fixation devices present at L3-4 and L4-5 which cause signal artifacts and limit assessment of regional structures. Conus medullaris terminates at L2 which is within normal limits. No abnormal cord signal or enhancement. Vertebral body heights are maintained. 1.1 cm T1/T2 hyperintense signal lesion within T11 has coarsened trabeculae, features of a hemangioma. Subcentimeter lesion with mixed T1 signal and T2 hyperintense signal appears to have coarsened trabeculae and probably represents an atypical hemangioma. Bilateral renal cysts measuring up to 1.4 cm in the right lower kidney. L1-L2: No significant disc bulging or evidence of a disc protrusion or extrusion. No significant neural foraminal narrowing or spinal canal stenosis. L2-L3: Disc desiccation, loss of disc height, and diffuse disc bulging. Mild facet arthropathy. Hypertrophy of the ligamentum flavum. Mild left neural foraminal narrowing. No significant right neural foraminal narrowing. Moderate to severe narrowing of the spinal canal. L3-L4: Disc desiccation and disc bulging. Moderate facet arthropathy. Mild bilateral neural foraminal narrowing. No significant spinal canal stenosis. L4-L5: 8 mm anterolisthesis of L4 on L5 results in uncovering of the intervertebral disc. Disc desiccation, loss of disc height, and disc bulging present. Intradiscal enhancement of annular tears. Moderate facet arthropathy. Bilateral foraminal endplate spurring. Moderate bilateral neural foraminal narrowing with possible compression on the right exiting nerve root. Spinal canal is severely narrowed. Right hemilaminectomy changes appear present. No abnormal enhancement identified at the postsurgical site. L5-S1: Minimal disc bulging. Mild bilateral facet arthropathy. No significant neural foraminal narrowing or spinal canal stenosis. Procedure Note Stephanie Julian MD - 06/07/2025 EXAM: Lumbar spine MRI HISTORY: Worsening low back pain. History of previous surgery. COMPARISON: Prior report dated 10/23/2020, images not available for directcomparison. CORRELATION: None TECHNIQUE: Exam performed on a 1.5 Rafia high-field MRI scanner.Multiplanar imaging performed without and with contrast. 11 cc of Dotaremadministered intravenously. FINDINGS: Numbering of the vertebral bodies is based on the assumption that inferiormost disc space is L5-S1. Interspinous process fixation devices present at L3-4 and L4-5 which causesignal artifacts and limit assessment of regional structures. Conus medullaris terminates at L2 which is within normal limits. Noabnormal cord signal or enhancement. Vertebral body heights are maintained. 1.1 cm T1/T2 hyperintense signallesion within T11 has coarsened trabeculae, features of a hemangioma.Subcentimeter lesion with mixed T1 signal and T2 hyperintense signalappears to have coarsened trabeculae and probably represents an atypicalhemangioma. Bilateral renal cysts measuring up to 1.4 cm in the right lower kidney. L1-L2: No significant disc bulging or evidence of a disc protrusion orextrusion. No significant neural foraminal narrowing or spinal canalstenosis. L2-L3: Disc desiccation, loss of disc height, and diffuse disc bulging.Mild facet arthropathy. Hypertrophy of the ligamentum flavum. Mild leftneural foraminal narrowing. No significant right neural foraminalnarrowing. Moderate to severe narrowing of the spinal canal. L3-L4: Disc desiccation and disc bulging. Moderate facet arthropathy. Mildbilateral neural foraminal narrowing. No significant spinal canalstenosis. L4-L5: 8 mm anterolisthesis of L4 on L5 results in uncovering of theintervertebral disc. Disc desiccation, loss of disc height, and discbulging present. Intradiscal enhancement of annular tears. Moderate facetarthropathy. Bilateral foraminal endplate spurring. Moderate bilateralneural foraminal narrowing with possible compression on the right exitingnerve root. Spinal canal is severely narrowed. Right hemilaminectomychanges appear present. No abnormal enhancement identified at thepostsurgical site. L5-S1: Minimal disc bulging. Mild bilateral facet arthropathy. Nosignificant neural foraminal narrowing or spinal canal stenosis. IMPRESSION: Multilevel degenerative changes and postsurgical changes. Findings aremost pronounced at L4-5 where severe spinal canal narrowing is present.Also, possible compression on the right exiting nerve root at L4-5.Moderate to severe spinal canal narrowing at L2-3. POS - [id number] -------- FINAL REPORT -------- Dictated By: Stephanie Julian Dictated Date: 06/07/2025 13:00 ET Assigned Physician: Stephanie Julian Reviewed and Electronically Signed By: Stephanie Julian Signed Date: 06/07/2025 18:17 ET Workstation ID: [id number] Transcribed By: Self Edit Transcribed Date: 06/07/2025 13:32 ET Prema Lizarraga MD IMG MRI PROCEDURES Final Result * MR Cervical Spine wo Contrast (06/01/2025 12:03 PM EDT) Anatomical Region Laterality Modality C-spine, Spine Magnetic Resonan ce 06/06/2025 5:41 PM EDT Impressions 06/06/2025 5:51 PM EDT Impression: 1. Postoperative changes from the C4-C7 region from prior fusion. 2. Multilevel degenerative changes worse at C4-C5 with severe bilateral neuroforaminal stenosis and moderate spinal canal stenosis. -------- FINAL REPORT -------- Dictated By: Rodney Toledo Dictated Date: 06/06/2025 17:41 ET Assigned Physician: Rodney Toledo Reviewed and Electronically Signed By: Rodney Toledo Signed Date: 06/06/2025 17:51 ET Workstation ID: [id number] Transcribed By: Self Edit Transcribed Date: 06/06/2025 17:41 ET Narrative 06/06/2025 5:51 PM EDT MRI CERVICAL SPINE Clinical Statement: Cervical radiculopathy, prior C-spine surgery Comparison: No prior imaging available at this institution, prior report from 07/24/2020 available Technique: Multiplanar, multisequence MRI images of the cervical spine were obtained without intravenous contrast. Findings: Straightening of the cervical lordosis due to postoperative changes. The patient is status post anterior fusion hardware and interbody spacers spanning the C4-C7 region.. The craniocervical junction is within normal limits. Heterogeneous vertebral body marrow signal consistent with degenerative changes and postoperative changes. Bony bridging is identified at multiple levels particularly at C5-C7.. Cord signal is within normal limits.. The visualized posterior fossa structures are normal. C2-C3: Central disc protrusion with mild left neuroforaminal stenosis, no right- sided neuroforaminal stenosis or spinal canal stenosis C3-C4: Broad-based disc bulge and central disc protrusion, moderate bilateral neuroforaminal stenosis and mild spinal canal stenosis C4-C5: Postoperative changes, central moderate-sized osteophyte and bony changes resulting in severe bilateral, left greater than right neuroforaminal stenosis and moderate spinal canal stenosis C5-C6: Postoperative changes with mild bilateral neuroforaminal stenosis and mild spinal canal stenosis C6-C7: Postoperative changes with moderate bilateral neuroforaminal stenosis and moderate spinal canal stenosis C7-T1: Postoperative changes with mild bilateral neuroforaminal stenosis and mild spinal canal stenosis Procedure Note Rodney Toledo MD - 06/06/2025 MRI CERVICAL SPINE Clinical Statement: Cervical radiculopathy, prior C-spine surgery Comparison: No prior imaging available at this institution, prior reportfrom 07/24/2020 available Technique: Multiplanar, multisequence MRI images of the cervical spinewere obtained without intravenous contrast. Findings: Straightening of the cervical lordosis due to postoperativechanges. The patient is status post anterior fusion hardware and interbodyspacers spanning the C4-C7 region.. The craniocervical junction is withinnormal limits. Heterogeneous vertebral body marrow signal consistent withdegenerative changes and postoperative changes. Bony bridging isidentified at multiple levels particularly at C5-C7.. Cord signal iswithin normal limits.. The visualized posterior fossa structures arenormal. C2-C3: Central disc protrusion with mild left neuroforaminal stenosis, noright- sided neuroforaminal stenosis or spinal canal stenosis C3-C4: Broad-based disc bulge and central disc protrusion, moderatebilateral neuroforaminal stenosis and mild spinal canal stenosis C4-C5: Postoperative changes, central moderate-sized osteophyte and bonychanges resulting in severe bilateral, left greater than rightneuroforaminal stenosis and moderate spinal canal stenosis C5-C6: Postoperative changes with mild bilateral neuroforaminal stenosisand mild spinal canal stenosis C6-C7: Postoperative changes with moderate bilateral neuroforaminalstenosis and moderate spinal canal stenosis C7-T1: Postoperative changes with mild bilateral neuroforaminal stenosisand mild spinal canal stenosis IMPRESSION: Impression: 1. Postoperative changes from the C4-C7 region from prior fusion. 2. Multilevel degenerative changes worse at C4-C5 with severe bilateralneuroforaminal stenosis and moderate spinal canal stenosis. -------- FINAL REPORT -------- Dictated By: Rodney Toledo Dictated Date: 06/06/2025 17:41 ET Assigned Physician: Rodney Toledo Reviewed and Electronically Signed By: Rodney Toledo Signed Date: 06/06/2025 17:51 ET Workstation ID: [id number] Transcribed By: Self Edit Transcribed Date: 06/06/2025 17:41 ET Prema Lizarraga MD IMG MRI PROCEDURES Final Result * MG Mammo Digital Screening w Marc bilat (03/09/2025 1:26 PM EDT) Anatomical Region Laterality Modality Breast Bilateral Mammography 03/09/2025 4:07 PM EDT Impressions 03/09/2025 4:13 PM EDT No mammographic evidence of malignancy. No suspicious interval change. A negative mammogram in the presence of a clinically suspicious palpable abnormality does not preclude the possibility of malignancy or alter the indications for biopsy. ASSESSMENT: BI-RADS 2: BENIGN RECOMMENDATION(S): 1: Routine screening mammogram BILATERAL in 1 year. [facility]amm[facility] location[facility] [address], [address] -------- FINAL REPORT -------- Dictated By: Nima Story Dictated Date: 03/09/2025 16:07 ET Assigned Physician: Nima Story Reviewed and Electronically Signed By: Nima Story Signed Date: 03/09/2025 16:13 ET Workstation ID: [id number] Transcribed By: Self Edit Transcribed Date: 03/09/2025 16:07 ET Narrative 03/09/2025 4:13 PM EDT EXAM: SCREENING MAMMOGRAPHY, BILATERAL HISTORY: SCREENING. No additional history. COMPARISON: 03/08/24, 12/13/22, 06/11/21 TECHNIQUE: Synthesized CC and MLO projections of each breast. Tomosynthesis of each breast in the CC and MLO projections. ADDITIONAL IMAGING: None Computer-aided detection was employed with the [employer] AI 3-D. TISSUE DENSITY: The breasts are extremely dense, which lowers the sensitivity of mammography. (BI-RADS category D) FINDINGS: There is a scar marker in the upper outer left breast on mammography 12/13/22. RIGHT BREAST: No suspicious mass. No suspicious calcification. No distortion. No additional suspicious right breast findings LEFT BREAST: No suspicious mass. No suspicious calcification. There is no change in architecture in the superficial upper left breast in the area of previous scar marker placement. Procedure Note Nima Story MD - 03/09/2025 EXAM: SCREENING MAMMOGRAPHY, BILATERAL HISTORY: SCREENING. No additional history. COMPARISON: 03/08/24, 12/13/22, 06/11/21 TECHNIQUE: Synthesized CC and MLO projections of each breast.Tomosynthesis of each breast in the CC and MLO projections. ADDITIONAL IMAGING: None Computer-aided detection was employed with the [employer] AI 3-D. TISSUE DENSITY: The breasts are extremely dense, which lowers thesensitivity of mammography. (BI-RADS category D) FINDINGS: There is a scar marker in the upper outer left breast on mammography12/13/22. RIGHT BREAST: No suspicious mass. No suspicious calcification. No distortion. Noadditional suspicious right breast findings LEFT BREAST: No suspicious mass. No suspicious calcification. There is no change in architecture in the superficial upper left breast inthe area of previous scar marker placement. IMPRESSION: No mammographic evidence of malignancy. No suspicious interval change. A negative mammogram in the presence of a clinically suspicious palpableabnormality does not preclude the possibility of malignancy or alter theindications for biopsy. ASSESSMENT: BI-RADS 2: BENIGN RECOMMENDATION(S): 1: Routine screening mammogram BILATERAL in 1 year. Mamm[facility] location: [facility] at [address], [address] -------- FINAL REPORT -------- Dictated By: Nima Story Dictated Date: 03/09/2025 16:07 ET Assigned Physician: Nima Story Reviewed and Electronically Signed By: Nima Story Signed Date: 03/09/2025 16:13 ET Workstation ID: [id number] Transcribed By: Self Edit Transcribed Date: 03/09/2025 16:07 ET us Prema Lizarraga MD IM BI PROCEDURES Final Result * (ABNORMAL) Lipid panel with reflex to direct LDL (01/18/2025 8:20 AM EDT) Cholesterol 222(H) 0 - 200 mg/dL LAB CHEMISTRY METHOD 01/18/2025 10:58 AM EDT [facility] Triglycerides 101 0 - 150 mg/dL LAB CHEMISTRY METHOD 01/18/2025 10:58 AM EDT [facility] HDL 60 >=40 mg/dL LAB CHEMISTRY METHOD 01/18/2025 10:58 AM EDT [facility] LDL Calculated 142(H) 0 - 100 mg/dL LAB CHEMISTRY METHOD 01/18/2025 10:58 AM EDT [facility] VLDL Cholesterol Blade 20.2 mg/dL LAB CHEMISTRY METHOD 01/18/2025 10:58 AM EDT [facility] Non HDL Chol. (LDL+VLDL) 162(H) <145 mg/dL LAB CHEMISTRY METHOD 01/18/2025 10:58 AM EDT [facility] Chol/HDL Ratio 3.7 0.0 - 4.4 LAB CHEMISTRY METHOD 01/18/2025 10:58 AM EDT [facility] Blood Venous blood specimen / Unknown Venipuncture / Unknown 01/18/2025 8:20 AM EDT 01/18/2025 8:20 AM EDT us Prema Lizarraga MD LAB BLOOD ORDERABLES Final Resul t [facility] [address] [place] [address], * PARUL DEXA AXIAL SKELETON (03/08/2024 3:38 PM EDT) Anatomical Region Laterality Modality Mammography 03/08/2024 8:38 AM EDT Narrative 03/08/2024 3:38 PM EDT [facility] Diagnostic Imaging Department [address] [place] [address] Patient: ROSA SHAH /Age/Sex: 1965 - 58 - F Unit#: [id number] Location/Status: [facility]REG CLI Mnemonic/Ordering Site: [facility]X/SPMAM Ordering Physician: BRITTANIE SMITH MD Parul Dexa Axial Skeleton - 03/08/24 - 0901 Report Status:Signed History: Low estrogen state due to menopause. Parent hip fracture. Comparison: No comparison imaging. Findings: Bone densitometry is performed utilizing dual energy x-ray absorptiometry (DXA) in the [employer] unit. The lumbar spine and left proximal femur are evaluated in the AP projection. The FRAX questionaire was completed. The results indicate osteoporosis, with a left femoral neck T-score of -2.8. The Z score is -1.4, indicating low bone mineral density for age. The detailed DEXA report will be mailed to the referring physician's office. DualFemur FRAX: 10-year Probability of Fracture: Major Osteoporotic 23.5 percent Hip 3.3 percent. IMPRESSION: Osteoporosis. [id number] Dictating Physician: TETE MILES MD Electronically Signed by: TETE MILES MD Dic Date/Time: 03/08/24 153 Sign date/Time: 03/08/241537 Procedure Note Tete Miles MD - 07/14/2024 [facility] Diagnostic Imaging Department [address] [place] [address] Patient: ROSA SHAH /Age/Sex: 1965 - 58 - F Unit#: [id number] Location/Status: [facility] CLI Mnemonic[facility] Ordering Physician: BRITTANIE SMITH MD Parul Dexa Axial Skeleton - 03/08/24 - 09 Report Status:Signed History: Low estrogen state due to menopause. Parent hip fracture. Comparison: No comparison imaging. Findings: Bone densitometry is performed utilizing dual energy x-ray absorptiometry(DXA) in the [employer] unit. The lumbar spine and left proximal femur are evaluated in the AP projection. The FRAX questionaire was completed. The results indicate osteoporosis, with a left femoral neck T-score of-2.8. The Z score is -1.4, indicating low bone mineral density for age. Thedetailed DEXA report will be mailed to the referring physician's office. DualFemur FRAX: 10-year Probability of Fracture: Major Osteoporotic 23.5 percent Hip 3.3 percent. IMPRESSION: Osteoporosis. [id number] Dictating Physician: TETE MILES MD Electronically Signed by: TETE MILES MD Dic Date/Time: 03/08/24 1536 Sign date/Time: 03/08/24 1538 Brittanie Sierra MD IMG BI PROCEDURES Final R esult * Colonoscopy (04/25/2023) Colonoscopy NO INTERPRETATION , ABSTRACTED Anatomical Region Laterality Modality Other Historical Provider HEALTH MAINTENANCE Final Result * Pap Smear (11/30/2013) Pap smear NO INTERPRETATION , ABSTRACTED Historical Provider HEALTH MAINTENANCE Final Result from Last 3 Months or Most Recently Relevant to Health Maintenance Insurance [employer] MED[employer]ARE ADVANTAGE Care Teams Mechanic Foreman Relationship Specialty Start Date End Date Prema Lizarraga MD [address] [address] PCP - General Family Medicine 01/05/25
--- OUTSIDE RECORDS SUMMARY | 2025-07-13 13:13 | XMS_ITS | Patient Health Record ---
Author Organization [facility] Address [address] [place] [address] Support Name Relationship Address Phone Unavailable Emergency Contact Unknown [phone] Rosa Shah Guarantor Unknown [phone] Reason For Referral No Information Plan Of Treatment No Information
--- OUTSIDE RECORDS SUMMARY | 2025-07-13 13:13 | XMS_ITS | Clinical Summary ---
Author Organization [facility] Address [address] [place] [address] Care Team Providers Care Leather Leveler Name Role Phone Brittanie Pearson MD Primary Care Provider [phone] Allergies Active Allergy Reactions Criticality Noted Date Comments Codeine Rash Low 03/05/2013 Methadone Palpitations High 10/18/2013 Chest pain Psyllium Anaphylaxis High 11/04/2023 Medications Medication Sig Dispensed Refills Start Date End Date Status ALPRAZolam (XANAX) 0.5 MG tablet Take 1 tablet (0.5 mg total) by mouth 2 (two) times a day. 0 Active amantadine (SYMMETREL) 100 MG capsule Take 1 capsule (100 mg total) by mouth 2 (two) times a day. 0 06/23/2024 Active amoxicillin (AMOXIL) 500 MG capsule TAKE 4 CAPSULES BY MOUTH 30 MINUTES PRIOR TO APPOINTMENT 0 06/28/2024 Active carbidopa-levodopa (SINEMET) 25-100 MG per tablet Take 1 tablet by mouth. 0 10/04/2014 Active entacapone (COMTAN) 200 MG tablet TAKE 1 TABLET BY MOUTH FOUR TIMES A DAY FOR 30 DAYS 0 05/31/2024 Active Inbrija 42 MG CAPS INHALE THE CONTENTS OF 2 CAPSULES VIA INHALATION DEVICE UP TO THREE TIMES DAILY NEEDED FOR 14 DAYS 0 05/17/2024 Active levothyroxine (SYNTHROID) tablet 125 mcg Take 1 tablet (125 mcg total) by mouth daily. 0 05/25/2024 Active sertraline (ZOLOFT) 100 MG tablet Take 2 tablets (200 mg total) by mouth daily. 0 06/15/2024 Active zolpidem (AMBIEN) 5 MG tablet Take 1 tablet (5 mg total) by mouth daily as needed. for sleep 0 06/04/2024 Active Active Problems Problem Noted Date Diagnosed Date Osteoporosis without current pathological fractu re 07/07/2024 Social History Tobacco Use Types Packs/Day Years Used Date Smoking Tobacco: Never Assessed Sex and Gender Information Value Date Recorded Sex Assigned at Not on file Gender Identity Not on file Sexual Orientation Not on file Job Start Date Occupation Industry Not on file Not on file Not on file Last Filed Vital Signs Vital Sign Reading Time Taken Comments Blood Pressure 104/58 07/08/2024 1:37 PM EDT Pulse 66 07/08/2024 1:36 PM EDT Temperature 36.5 C (97.7 F) 07/08/2024 1:36 PM EDT Respiratory Rate 20 07/08/2024 1:36 PM EDT Oxygen Saturation 99% 07/08/2024 1:36 PM EDT Inhaled Oxygen Concentration - - Weight - - Height - - Body Mass Index - - Plan of Treatment Health Maintenance Due Date Last Done Comments Hepatitis C Screening 1963 COVID-19 Vaccine (#1) 01/30/1964 Depression Screening 1975 Preventative Health Evaluation 1981 Cervical Cancer Screening (Pap Smear) 1984 Colon Cancer Screening (Colonoscopy) 2008 Breast Cancer Screening (Mammogram) 2013 Shingrix-Zoster Vaccine (1 o f 2) 2013 Influenza Vaccine (#1) 2025 DTap / Tdap / Td (3 - Td or Tdap) 12/02/2033 12/03/2023, 12/31/2007 RSV Adult > 60+ Yrs or (1 - 1-dose 75+ series) 2038 Hepatitis B Vaccines Aged Out No long er eligible based on patient's age to complete this topic Pneumococcal Vaccine Aged Out No long er eligible based on patient's age to complete this topic RSV Ped < 20 months Aged Out No longe r eligible based on patient's age to complete this topic Care Teams Leather Leveler Relationship Specialty Start Date End Date Brittanie Pearson MD [facility] [address] [facility] [address] PCP - General Internal Medicine 07/08/24
--- OUTSIDE RECORDS SUMMARY | 2025-07-13 13:13 | XMS_ITS | Patient Health Record ---
Author Organization [facility] Address [address] [place] [address] Care Team Providers Care Cartographic Designer Name Role Phone Ronal Al MD Primary Care Provider Unavailab Ricardo Cottrell MD Unavailable Unavailable Reason For Referral No Information Plan Of Treatment No Information Insurance Providers Payer Name Payer Address Payer Phone Subscriber Number Group Number Insured Name Patient Relationship to Insured Coverage Start Date Coverage End Date [facility] [employer] [facility] [address] [address] [place], [place] [id number] Rosa Shah Self - patient is the insured
--- OUTSIDE RECORDS SUMMARY | 2025-07-13 13:13 | XMS_ITS | Patient Health Record ---
Author Organization [facility] Address [address] [place] [address] Care Team Providers Care Teacher Drama Name Role Phone Meera Miranda Unavailable [phone] Allergies Allergen (clinical drug ingredient) Drug/Non Drug Allergy documented on EMR Reaction Allergy Type Onset Date Status psyllium Metamucil Unknown Drug Allergy Active Tylenol/Codeine #3 Unknown Drug Allergy Active methadone Methadone Unknown Drug Allergy Active Reason For Referral No Information Medications Medication SIG (Take, Route, Frequency, Duration) Notes Start Date End Date Status Zoloft 100 MG 1 tablet Orally Once a day Active Ambien 10 MG 1 tablet at bedtime as needed Orally Once a day Active Acanya 1.2-2.5 % 1 application to affected area Externally Once a day Active Liothyronine Sodium 5 MCG 1 tablet on an empty stomach Orally Once a day Active Percocet 5-325 MG 1 tablet as needed Orally every 6 hrs Active Vortioxetine HBr 10 MG 1 tablet Orally Once a day Active Carbidopa 25 MG Orally Acti ve Levothyroxine Sodium 100 MCG 1 tablet Orally Once a day Active KlonoPIN 1 MG 1 tablet Orally Twice a day Active Opana ER 10 MG 1 tablet on an empty stomach Orally every 12 hrs *Reorder from [employer] for eRx and Interaction Alerts* Active Vitamin D2 50,000 Unit *Pick strength-form from [employer] for eRX* Active Problems Problem Type SNOMED Code ICD Code Onset Dates Problem Status W/U Status Risk Notes Problem Family History of Cancer of Colon (Situation) (079183109) Family history of colon cancer (Z80.0) Active confirmed Problem Menopausal symptom (73234261) Hot flashes due to menopause (N95.1) Active confirmed Problem Menopause (850172470) Menopause (Z78.0) Active confirmed Plan Of Treatment Pending Test Test Name Order Date Mammogram, screening 06/18/2016 Medical (General) History Medical History History ICD Code acne thyroid disease migraines asthma pneumonia acid reflux/GERD ulceration colitis/Crohn's depression/anxiety OCD broken bones arthritis abnormal paps parkinson's degenerative disc disease yeast infections Insomnia Surgical History Surgery Date(Month/Year) Right Achilles Tendon Lengthening 2014 C4 Anterior Cervical Discectomy and Fusi on 2014 Lithotripsy 2009 C7 Anterior Cervical Discectomy and fusi on, C6 re-do 2006 C5-C7 Anterior Cervical Discectomy and f usion 2004 Septoplasty and endoscopic ssinus surger y 2003 Rectal fissure and polyps 1991 Tonsils and Adenoids 1968 Hospitalization History Reason Date(Month/Year) P.T. & O.T. 2013 P.T. & O.T. 2013 P.T. & O.T. 2011 Major Depressive Disorder 2008
--- OUTSIDE RECORDS SUMMARY | 2025-07-13 13:13 | XMS_ITS ---
Author Name [facility] Organization Unknown History of Medication Use Medication Directions Dispensed Refills Start Date End Date Stat gabapentin (Neurontin) 100 mg capsule Take 1 capsule (100 mg total) by mouth 3 (three) times a day. 04/29/2025 05/13/2025 active lidocaine (Lidoderm) 5 % patch Apply 1 patch topically 1 (one) time each day. Remove & discard patch within 12 hours or as directed by MD. 04/29/2025 active gabapentin (NEURONTIN) 300 mg capsule 01/17/2025 active cyclobenzaprine (FLEXERIL) 10 mg tablet 01/07/2025 active cyclobenzaprine (FLEXERIL) 10 mg tablet 01/07/2025 active levothyroxine (SYNTHROID, LEVOTHROID) 125 mcg tablet TAKE 1 TABLET BY MOUTH EVERY DAY 09/07/2024 active levothyroxine (SYNTHROID, LEVOTHROID) 125 mcg tablet TAKE 1 TABLET BY MOUTH EVERY DAY 09/07/2024 active sertraline (ZOLOFT) 100 mg tablet Take 2 tablets (200 mg total) by mouth 1 (one) time each day. 06/15/2024 active sertraline (ZOLOFT) 100 mg tablet Take 2 tablets (200 mg total) by mouth 1 (one) time each day. 06/15/2024 active zoledronic acid (RECLAST) 5 mg/100 mL piggyback Infuse 100 mL (5 mg total) into a venous catheter 1 (one) time. 06/04/2024 01/05/2025 aborted entacapone (COMTAN) 200 mg tablet Take 1 tablet (200 mg total) by mouth 3 (three) times a day. 05/31/2024 active entacapone (COMTAN) 200 mg tablet Take 1 tablet (200 mg total) by mouth 3 (three) times a day. 05/31/2024 active carbidopa-levodopa tablet 1.5 tablets every 4 hours by oral route. 10/22/2023 active alprazolam 0.5 mg tablet TAKE 1 TABLET BY MOUTH EVERY DAY NEEDED active amantadine HCl 100 mg capsule TAKE 1 CAPSULE BY MOUTH TWICE A DAY active amantadine HCl 100 mg tablet TAKE 1 TABLET BY MOUTH TWICE A DAY FOR 30 DAYS active amoxicillin 500 mg capsule TAKE 4 CAPSULES BY MOUTH 30 MINUTES PRIOR TO APPOINTMENT active carbidopa 25 mg-levodopa 100 mg tablet PLEASE SEE ATTACHED FOR DETAILED DIRECTIONS active clindamycin HCl 300 mg capsule TAKE 1 CAPSULE BY MOUTH THREE TIMES A DAY active entacapone 200 mg tablet TAKE 1 TABLET BY MOUTH FOUR TIMES A DAY FOR 30 DAYS 90 active Inbrija 42 mg capsule with inhalation device INHALE THE CONTENTS OF 2 CAPSULES VIA INHALATION DEVICE UP TO THREE TIMES DAILY NEEDED active levothyroxine 125 mcg tablet TAKE 1 TABLET BY MOUTH EVERY DAY active sertraline 100 mg tablet TAKE 2 TABLETS BY MOUTH EVERY DAY active zolpidem 10 mg tablet TAKE 1 TABLET BY MOUTH ONCE A DAY (AT BEDTIME) active zolpidem 5 mg tablet 1 TABLET(S) ORALLY 1 TIMES A DAY ( NEEDED FOR SLEEP) active ALPRAZolam (XANAX) 0.5 mg tablet Take 1 tablet (0.5 mg total) by mouth 1 (one) time each day. active ALPRAZolam (XANAX) 0.5 mg tablet Take 1 tablet (0.5 mg total) by mouth 1 (one) time each day. active amantadine (SYMMETREL) 100 mg tablet Take 1 tablet (100 mg total) by mouth 2 (two) times a day. for 30 days active amantadine (SYMMETREL) 100 mg tablet Take 1 tablet (100 mg total) by mouth 2 (two) times a day. for 30 days active carbidopa-levodopa (SINEMET) 25-100 mg per tablet Take 1.5 tablets by mouth 5 (five) times a day. active carbidopa-levodopa (SINEMET) 25-100 mg per tablet Take 1.5 tablets by mouth 5 (five) times a day. active Inbrija 42 mg capsule, w/inhalation device Place 2 capsules into inhaler and inhale 3 (three) times a day if needed. active Inbrija 42 mg capsule, w/inhalation device Place 2 capsules into inhaler and inhale 3 (three) times a day if needed. active levomefolate-algal oil (Deplin, algal oil,) 15-90.314 mg tablet Take 1 tablet (15 mg total) by mouth 1 (one) time each day. active levomefolate-algal oil (Deplin, algal oil,) 15-90.314 mg tablet Take 1 tablet (15 mg total) by mouth 1 (one) time each day. active zolpidem (AMBIEN) 10 mg tablet Take 5 mg by mouth at bedtime as needed. active zolpidem (AMBIEN) 10 mg tablet Take 5 mg by mouth at bedtime as needed. active Allergies Allergen Reaction Severity Comment Documented Date Source Statu s METHADONE PAIN 01/10/2025 [facility] active PSYLLIUM ANAPHYLAXIS 11/04/2023 [facility] activ e SUCROSE ANAPHYLAXIS 11/29/2004 [facility] active ACETAMINOPHEN-CODEINE ITCHING [facility] DEXTROSE ANAPHYLAXIS [facility] METAMUCIL ANAPHYLAXIS severe ENS_AONECT PSYLLIUM HUSK ANAPHYLAXIS [facility] Problems Problem Status Onset Date Problem Type Date of Resolution Source Insomnia active 2023-11-04 ProblemAct [facility] Kidney stone active 2023-11-04 ProblemAct [facility] Osteoporosis active 2023-11-04 ProblemAct [facility] Encounter to establish care active 2025-01-05 ProblemAct [facility] Right lower quadrant abdominal mass active 2025-05-13 ProblemAct [facility] Major depressive disorder in partial remission ([facility] V24) active 2023-11-04 ProblemAct [facility] Thoracic degenerative disc disease active 2025-01-10 ProblemAct [facility] Hypothyroidism active 2023-11-04 Problem[address] [facility] Degenerative disc disease, cervical active EncounterDiagnosisAct C [facility] PTSD (post-traumatic stress disorder) active 2023-11-04 ProblemAct [facility] Degeneration of intervertebral disc of lumbar region with discogenic back pain active EncounterDiagnosisAct [facility] OCD (obsessive compulsive disorder) active 2023-11-04 ProblemAct [facility] Parkinson's disease (CMS/HCC V24, CMS/[facility] V28) active 2023-11-04 ProblemAct [facility] Anxiety and depression active 2023-11-04 ProblemAct [facility] Immunizations Vaccine Date Source Lot Number Status Pneumococcal conjugate 20 va lent (Prevnar 20, PCV 20) 2mo and older 01/20/2025 [facility] [id number] comple drea Tdap Tetanus diptheria acell ular pertussis (Boostrix; Adacel) 7yo and older 12/03/2023 [facility] [id number] completed Influenza, Unspecified 07/01/2023 [facility] co mpleted Tdap Tetanus diptheria acell ular pertussis (Boostrix; Adacel) 7yo and older 12/31/2007 [facility] completed Encounters Encounter Type Encounter Reason Primary Diagnosis Location Date Ambulatory Follow-up Other cervical d isc degeneration, unspecified cervical region [facility] 05/13/2025 Ambulatory Follow-up Other cervical d isc degeneration, unspecified cervical region [facility] 04/29/2025 Ambulatory Back Pain Back Pain [facility] 03/08/2025 Ambulatory Follow-up Follow-up [facility] 01/28/2025 Ambulatory Annual Exam Encounter for ge neral adult medical examination without abnormal findings [facility] 01/20/2025 Ambulatory Other intervertebral disc degeneration, thoracic region Other intervertebral disc degeneration, thoracic region [facility] 01/10/2025 Ambulatory Follow-up Other interverte bral disc degeneration, thoracic region [facility] 01/10/2025 Ambulatory new patient Hypothyroidism, unspecified [facility] 01/05/2025 Ambulatory [facility] 11/16/2024 Ambulatory [facility] 11/15/2024 Ambulatory [facility] 11/15/2024 Ambulatory [facility] 11/15/2024 Ambulatory [facility] 11/12/2024 Ambulatory [facility] 11/11/2024 Ambulatory [facility] 11/09/2024 Care Team Organization Name Specialty Phone Email Start Date End Da te [facility] JOSE RAUL Primary Care 01/12/2025 [facility] JOSE RAUL Primary Care 01/10/2025 [facility] JOSE RAUL Primary Care 01/09/2025 [facility] 01/05/2025
--- OUTSIDE RECORDS SUMMARY | 2025-07-13 13:13 | XMS_ITS | Encounter Summary ---
Author Organization [facility] Address [address] [place] [address] Care Team Providers Care Epic Stork Specialists Name Role Phone Prema Lizarraga MD Primary Care Provider [phone] Encounter Details Date Type Department Care Team (Late st Contact Info) Description 07/05/2025 Results Follow-Up Endocrinology [address] [phone] MD [address] [place] [address] Social History Tobacco Use Types Packs/Day Years [...] for your loved ones. For example, child nurse or elderly care for an older adult? [...] on file documented as of this encounter Plan of Treatment Upcoming Encounters Date Type Department Care Team (Late st Contact Info) Description 07/22/2025 11:00 AM EDT Office Visit Internal Medicine - [place] [address] [place] [phone] Prema Lizarraga MD [address] [place] [address] 07/22/2025 1:00 PM EDT Treatment [facility] - [address] [place] [address] Jax Pickett, VULCANIZING PRESS OPERATOR 07/27/2025 11:30 AM EDT Treatment [address] [phone] Dalton Matta, PT [address] [place] [address] 07/29/2025 12:30 PM EDT Treatment [address] [phone] Jax Pickett, VULCANIZING PRESS OPERATOR 08/03/2025 11:30 AM EST Treatment [address] [phone] Dalton Matta, PT [address] [place] [address] 08/05/2025 10:00 AM EST Treatment [address] [phone] Jax Pickett, VULCANIZING PRESS OPERATOR 08/10/2025 9:00 AM EST Treatment [address] [phone] Juanjo Fairbanks, VULCANIZING PRESS OPERATOR 08/17/2025 9:00 AM EST Treatment [address] [phone] Dalton Matta, PT [address] [place] [address] 12/26/2025 11:00 AM EDT Office Visit Endocrinology - [place] [address] [place] [phone] Joann Bustos PA [address] [place] [address] documented as of this encounter Goals Goal Patient Goal Type Associated Problems Recent Progress Patient-Stated? Author feel better General Yes Dalton Matta, PT PT STG x 8 visits from [facility] on 07/06/2025 General No Dalton Matta, [...] flexor strength to 10 seconds (2 at [facility]) PT LTG x 16 visits from [facility] on 07/06/2025 General No Dalton Matta, [...] documented as of this encounter Visit Diagnoses Not on filedocumented in this encounter Additional Health Concerns Assessment Noted Time PHQ-9 Depression Total Score: 7 01/20/20 25 3:55 PM EDT A fall risk assessment has been complete d for the patient 01/20/2025 10:53 AM EDT documented as of this encounter Care Teams Epic Stork Specialists Relationship Specialty Start Date End Date Prema Lizarraga MD [address] [place] [address] PCP - General Family Medicine 01/05/25 documented as of this encounter
== END 2025-07-13 11:19 | disposition home or self-care (01) ==
LOC: HO.HSM 10:50
PROVIDERS: PCP Internal Medicine; Referring Provider Internal Medicine; Visit Provider Registered Nurse
DX: G20.B2 Parkinson's disease with dyskinesia, with fluctuations (principal)
CPT/HCPCS: 99214

== ENCOUNTER 2025-09-14 13:10 | Outpatient (AMB) | payer OTHER, SELFPAY ==
--- NOTE | 2025-09-14 13:16 | A.OFFVIS_ITS ---
Intake Visit Reasons: 2m PD Allergies psyllium (From Metamucil) Allergy (Unknown, Verified 07/13/25 10:52) Unknown Medication List - Last Reconciled 09/14/25 by Raffaele Cotter MD alprazolam 0.5 mg PO DAILY PRN amantadine HCl 100 mg PO BID carbidopa-levodopa 25-100 mg (Sinemet) orally 4 times a day; 1.5 tabs q4h starting at 6.00 am for a total of 4 doses a day ( 6 tabs a day) entacapone 200 mg PO QID gabapentin 100 mg PO TID levodopa (Inbrija) mg inhalation levothyroxine 125 mcg PO DAILY sertraline 200 mg PO DAILY zolpidem 5 mg PO DAILY PRN HPI Comments Details: She was having more involuntary body movements and swaying. No falls. Has trouble turning in bed. In PT for neck pain. She is right-handed and says handwriting is terrible again. She needs family to fill out paperwork for her. She is unable to use computer mouse with right hand and has been having to use left hand. Unpredictable off periods, which she calls sloth periods. Using Inbrija between 0-3x/day as needed which works within 15 minutes. Taking carbidopa-levodopa 25-100mg 1.5 tablets five times a day, entacapone 200mg four times a day, and amantine 100mg twice a day. Previously was using Inbrija 1x/day or less, usually twice a week, works in 10- 15 minutes. Has unpredictable off periods. Still getting the sloth and at times needs to use a cane. She can suddenly get an off period where she can barely move. It can last up to 2 hours. Previously, dyskinesia was better. She had multiple cervical and lumbar spine surgeries over the years. Fusion with hardware who was hospitalized in 2009 and was diagnosed with various things at one point, possible MS but then in 2013 was diagnosed with Parkinson's disease with right-sided tremor and increased tone. 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 At one time should also developed a right foot drop and has calf atrophy on the right, probably related to lumbar radiculopathy. She has periods where she can't move what she calls moving like a sloth. 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 [facility] Medical History (Updated 09/14/25 @ 13:20 by Raffaele Cotter MD) Parkinsons disease Kidney stone Depression Anxiety Hypothyroidism Surgical History (Updated 07/13/25 @ 11:03 by Katie Alvarado CNP) History of total right knee replacement S/P carpal tunnel release S/P lumbar discectomy S/P cervical discectomy Review of Systems Const Denies chills, Denies daytime sleepiness, Reports difficulty sleeping, Denies fatigue, Denies fever(s), Denies frequent falls, Denies headache(s), Denies increased appetite, Denies poor appetite, Denies snoring, Denies weakness, Denies weight gain and Denies weight loss Eyes Denies loss of vision ENT Denies vertigo, Denies dizziness, Denies headache(s) and Reports neck pain Card Denies chest pain at rest, Denies chest pain with activity, Denies syncope, Denies leg edema, Denies palpitations, Denies dyspnea and Denies dyspnea on exertion Resp Denies cough, Denies dyspnea, Denies dyspnea on exertion and Denies snoring GI Denies abdominal pain, Denies constipation, Denies heartburn, Denies diarrhea and Denies nausea Denies urinary frequency, Denies urinary incontinence and Denies urinary urgency Musc Reports abnormal gait (balance difficulty), Reports back pain, Reports myalgias, Reports arthralgias, Reports neck pain, Denies numbness and Denies tingling Neuro Reports abnormal gait (balance difficulty), Denies vertigo, Denies dizziness, Denies syncope, Denies frequent falls, Denies headache(s), Denies lack of coordination, Denies loss of vision, Denies memory loss, Denies numbness, Denies Other visual disturbances, Denies restless legs, Denies seizure-like activity, Denies tingling, Denies paresthesias, Reports tremor(s) and Denies weakness Psych Reports anxiety, Reports depression, Denies auditory hallucinations, Denies memory loss and Denies visual hallucinations Endo Denies fatigue and Denies palpitations Physical Exam Const Other: General Appearance:? normal, in no acute distress. Heart:? S1, S2 normal, no murmurs. Lungs:? clear anteriorly and posteriorly. Musculoskeletal:? normal. Extremities:? no edema. Psych:? alert, oriented, cognitive function intact, cooperative with exam. Neuro Other: Abnormal Neurological Findings:?Moderate dyskinetic movements of her limbs, trunk, and neck. Minimally increased tone on R side with slight cogwheeling at the wrist. Atrophy of R calf with absent R ankle reflex. Mental Status: alert and oriented X 3. Normal attention, orientation, memory, and affect. Cranial Nerves: Pupils are equal, round, and reactive to light. External ocular muscles are intact. Visual hardy are full, no ptosis. Face is symmetrical, no facial weakness or droop. Facial sensations are normal. Tongue protrudes in midline. Palate elevates symmetrically. Shoulder shrugging is normal Motor Examination: As above. Sensory Exam: Normal light touch, temperature, pinprick, vibration, and joint- position sensations. Rhomberg sign is absent. Coordination: No ataxia. No titubation. Gait Exam: Within normal limits. Cerebellar Signs: [id number] is okay. Extrapyramidal System: As above. Speech: Normal. Assessment & Plan Assessment & Plan (1) Parkinson's disease with dyskinesia and fluctuating manifestations: Code(s): G20.B2 - Parkinson's disease with dyskinesia, with fluctuations Category: Medical Plan Because of the dyskinesia, I have asked her to reduce the dos eto 6 tabs a day from 6.5 tabs and do 1.5 tabs every 4 hrs from 6 am to 6 pm. She has a tendency to take more. Coding Level of Care Code Est Pt Level 4 (97510) Diagnoses Parkinson's disease with dyskinesia and fluctuating manifestations G20.B2
--- OUTSIDE RECORDS SUMMARY | 2025-09-14 17:22 | XMS_ITS | Data Portability ---
Author Organization [place] [facility] [place] Address [address] [place] [address] Care Team Providers Care Youth Worker Name Role Phone DOUG DOTSON Primary Care Provider DOUG DOTSON Referring Provider [phone] Assessment Encounter Date Assessment Date Assessment LastModified by Organization Details LastModified Time 11/15/2024 11/15/2024 HPI 59-year-old female with history of Parkinson's disease and a lot of low back surgery presents for tailbone pain. She feels like her tailbone is growing over the last 6 months and that this as well as the pelvic bones in her butt are protruding and uncomfortable to sit on. She has no focal thoracolumbar pain. Denies radicular pain or symptoms. She has this pain with prolonged periods of sitting. No pain with walking, prolonged standing or ADLs. She does recall some significant weight loss when she was first diagnosed with Parkinson's and was hospitalized for other reasons, however she feels she has gained most of it back. Reports chronic intermittent low back pain with certain activities but this is longstanding even since her surgeries. She takes Tylenol as needed. Denies disturbance to sleep. Denies saddle anesthesia. Deniesbowel or bladder incontinence. No fevers, chills, or unexplained weight loss. She presents today hoping to get x-rays to make sure nothing is growing there. EXAM Constitutional: appears well developed, in no acute distress. She appears anxious/fidgety. She ambulates with a nonantalgic gait. Back: Inspection of the thoracolumbar spine is unremarkable. No deformity noted. Nontender to palpation over midline lumbosacral spine or paraspinal musculature. The area of concern is nontender to palpation. Nontender to palpation over b/l SI joints. Neurologic: Sensation grossly intact to light touch in bilateral lower extremities. 5/5 strength with hip flexion, knee flexion/extensio n, dorsi/plantar flexion, and EHL bilaterally. Non-tender, no palpable masses bilaterally. Negative straight leg raise bilaterally. Able to toe raise and heel walk bilaterally Normal tone in all 4 extremities. Skin: skin intact PLAN 59-year-old female with chronic coccydynia. Her exam is otherwise largely benign. She has no lumbar pain or radiculopathy. Her radiographs are negative for acute injury. She will try utilizing a donut pillow for comfort with prolonged periods of sitting. She is relieved with reassurance. She will follow-up with the office as needed. Patient was seen and evaluated by Lulu Tobar PA-C in indirect conjunction with Wallace Bedoya MD. He agrees with history, physical examination, tests/diagnostic imaging, and treatment plan. Not available 11/15/2024 16:05:21 Plan of Treatment Reminders Order Date Submit Date Provider Last Modified By Organization Details Last Modified Time Details Appointments None recorded. Lab None recorded. Referral None recorded. Procedures None recorded. Surgeries None recorded. Imaging XR, sacrum + coccyx, 2 or more view 2024 025 [email or web address] [facility], [address], [place], [address], 15:02:36 XR, lumbosacral spine, 2 or 3 view, bending only 2024 025 [email or web address] [facility], [address], [place], [address], 15:02:35 Medication Orders None recorded. Patient TargetsNo targets recorded. Patient Instructions Encounter Date Encounter Id Patient Instructions Last Modified By Organization Details Last Modified Time 11/15/2024 [id number] 4 views lumbar s pine were obtained today to 1725 in the [place] office. There is fusion hardware at L3-L4-L5 interspinous process spacers that appear in stable position. Grade 2 L4-L5 spondylolisthesis. Significant degeneration of the L5-S1 disc base. 3 views of the sacrum/coccyx reveal moderate degenerative changes. Partially visualized left hip replacement hardware. Not available 11/15/2024 15:16:51 Reason for Referral None Reported. Medical Equipment None Reported. Allergies Allergen ID Allergen Name Allergen Category Reaction Reaction Severity Criticality Documentation Date Start Date Code Code System Note Provider Name and Address Organization Details Recorded Time Metamucil medicatio n anaphylax is severe Not available 11/15/20241990 [address] [place] [facility] 14:36:13 Medications Name Sig Start Date Stop Date Status Note LastModified by Organization Details LastModified Time amantadine HCl 100 mg tablet TAKE 1 TABLET BY MOUTH TWICE A DAY FOR 30 DAYS active Not Available Not Available No t Available amoxicillin 500 mg capsule TAKE 4 CAPSULES BY MOUTH 30 MINUTES PRIOR TO APPOINTMENT active Not Available Not Available Not Available clindamycin HCl 300 mg capsule TAKE 1 CAPSULE BY MOUTH THREE TIMES A DAY active Not Available Not Available Not Available sertraline 100 mg tablet TAKE 2 TABLETS BY MOUTH EVERY DAY active Not Available Not Available No t Available amantadine HCl 100 mg capsule TAKE 1 CAPSULE BY MOUTH TWICE A DAY active Not Available Not Available No t Available alprazolam 0.5 mg tablet TAKE 1 TABLET BY MOUTH EVERY DAY NEEDED active Not Available Not Available No t Available entacapone 200 mg tablet TAKE 1 TABLET BY MOUTH FOUR TIMES A DAY FOR 30 DAYS 90 active Not Available Not Available No t Available levothyroxin e 125 mcg tablet TAKE 1 TABLET BY MOUTH EVERY DAY active Not Available Not Available No t Available zolpidem 5 mg tablet 1 TABLET(S) ORALLY 1 TIMES A DAY ( NEEDED FOR SLEEP) active Not Available Not Available N ot Available zolpidem 10 mg tablet TAKE 1 TABLET BY MOUTH ONCE A DAY (AT BEDTIME) active Not Available Not Available No t Available carbidopa 25 mg-levodopa 100 mg tablet PLEASE SEE ATTACHED FOR DETAILED DIRECTIONS active Not Available Not Available N ot Available carbidopa-le vodopa tablet 1.5 tablets every 4 hours by oral route. 2023 active Not Available Not Available Not Avai lable Amantadine 100 mg capsule 3 capsules every 4 hours by oral route. 2023 active Not Available Not Available Not Avai lable Inbrija 42 mg capsule with inhalation device INHALE THE CONTENTS OF 2 CAPSULES VIA INHALATION DEVICE UP TO THREE TIMES DAILY NEEDED active Not Available Not Available No t Available Vitals Date Recorded Body height Body mass index (BMI) Body weight Provider Name and Address Organization Details Last Updated DateTime 11/15/2024 160.02 cm 22.3 kg/m2 [address] [facility] 11/15/2024 14:40:38 Social History None recorded. Functional Status Question Answer Note LastModified by Organizat ion Details LastModified Time Do you use any illicit or recreational drugs? No Information not available 11/15/2024 What is your level of alcohol consumption? None Information not available 11/15/2024 Mental Status None recorded. Family History Relationship Description Onset Age of this Age Resolved Age Notes LastModified by Organization Details LastModified Time Mother History of cancer of unknown primary site [email or web address] Not available 15:22:47 Father History of cancer of unknown primary site [email or web address] Not available 15:22:47 Brother History of cancer of unknown primary site [email or web address] Not available 15:22:47 Sister History of cancer of unknown primary site [email or web address] Not available 15:22:47 Medical History Condition Response Coronary Artery Disease N Gout N Hyperthyroidism N MRSA N Blood Transfusion N Emphysema N Hypothyroidism Y Depression Y COPD N Pacemaker N Vascular Disease N Gastrointestinal Disease N Anxiety Disorder Y Autoimmune disease N Arthritis Y Cancer N Stroke N High Cholesterol N Neurologic Disorder Y Liver Disease N Organ Transplant N Rheumatoid Arthritis N Arrhythmia N Fibromyalgia Y Kidney Disease N Allergies/Hayfever N Adverse Reaction to Anesthesia N Thyroid Problems Y Anemia N Brain Injury N Heart Attack (DE) N Osteopenia N Diabetes N Bleeding Disorder N Seizures/Epilepsy N AIDS/HIV N Congestive Heart Failure (CHF) N Asthma N Amputation N Reflux/GERD N Sleep Apnea N Hepatitis N Aneurysm N Heart Disease N Pulmonary Embolism N Hypertension N Osteoporosis Y Gynecological HistoryNo gynecological history recorded. Obstetrics History GPAL:G 0 P 0 0 0 0 Past Encounters Encounter ID Performer Location Encounter Start Date Encounter Closed Date Diagnosis/Indication Diagnosis SNOMED-CT Code Diagnosis ICD10 Code Diagnosis IMO Codes Diagnosis Note [id number] LULU TOBAR PA-C [facility] [address] [facility] [facility] [address] [place] [address] 11/15/2024 14:15:17 11/15/2024 15:02:35 Low back pain 422679267 M54.50 93827 Pain in coccyx 08240160 M53.3 95014 Health Concerns Section Related Observation LastModified by Organization Detai ls LastModified Time None Recorded Concern Status LastModified by Organization Details LastModified Time None Recorded Advance Directives Directive None Recorded Payers Insurance Date Sequence Insurance Name Policy Number Policy Martinez Covered Member ID Martinez Member ID Guarantor Name 11/15/2024 1 [employer] [id number] Rosa Shah [id number] Rosa Shah Notes Date Note Type Note Provider Name and Address Organization Details Recorded Time 11/15/2024 text/html ROS as noted in the HPI LULU TOBAR PA-C [address], [place], [address], [place] [facility] 11/15/2024 16:05:27 OBGyn Episode No OBEpisode recorded.
--- OUTSIDE RECORDS SUMMARY | 2025-09-14 17:22 | XMS_ITS | Data Portability ---
Author Organization [place] [facility], [facility] Address [address] [place] [address] Care Team Providers Care Weed Sprayer Name Role Phone MEGHANN MUNOZ Primary Care Provider Assessment Encounter Date Assessment Date Assessment LastModified by Organization Details LastModified Time 11/09/2015 11/09/2015 Continue to work with physical therapy and transition out of the boot. She'll start wearing normal shoe and increase activity as tolerated. Follow-up in 6 weeks time for repeat evaluation. Not available 11/09/2015 12:27:00 12/21/2015 12/21/2015 Patient would like to continue with physical therapy and I think this is a good idea. I renewed the prescription today. Continue to increase activity as tolerated. See her back in 3 months time for repeat evaluation. She will no longer be using the CAM walking boot. I have recommended that she begin to use her normal shoe as she increases her activity. Not available 12/22/2015 00:03:22 03/21/2016 03/21/2016 Recommend she continue with physical therapy. Should really be working the aggressive strengthening at this time. Increase activities as tolerated. Follow-up in 6 months time for repeat evaluation. Not available 03/21/2016 13:20:53 10/10/2016 10/10/2016 My suspicion is that the bulk of her pain is related to lateral column overload. I have recommended the addition of a Abdul block style orthosis. I will see her back in the office at this point on a PRN basis. [email or web address] Not available 10/10/2016 12:43:28 Plan of Treatment Reminders Order Date Submit Date Provider Last Modified By Organization Details Last Modified Time Details Appointments None recorded. Lab None recorded. Referral physical therapist referral - CONTINUE TO WORK STRETCHING AND STRENGTHEN ING OF THE ACHILLES AND CALF. 2015 016 JEANETTE Bardolino Grille [facility], [address] [facility], [place], [address], 6 05:02:57 physical therapist referral - 2 MONTHS S/P RIGHT ACHILLES LENGTHENIN G. WORK STRETCHING AND STRENGTHEN ING OF THE ACHILLES AND CALF. 2015 016 [email or web address] Bardolino Grille [facility], [address] [facility], [place], [address], 6 15:52:12 Procedures None recorded. Surgeries None recorded. Imaging XR, foot 2016 017 [email or web address] In-House Results, For Internal Use Only, Do Not Delete/merge, [id number] 7 12:08:04 Medication Orders None recorded. Patient TargetsNo targets recorded. Patient Instructions Encounter Date Encounter Id Patient Instructions Last Modified By Organization Details Last Modified Time 10/12/2015 [id number] Patient will beg in to weight-bear as tolerated in the walking boot. He'll start physical therapy to begin working on range of motion and strengthening as well as stretching of the Achilles tendon. I'll see her back in 4 weeks time for repeat evaluation. Not available 10/12/2015 16:25:29 Follow-up sooner if any concerns or questions that need to be discussed. Not available 10/12/2015 16:25:29 11/09/2015 [id number] Follow-up sooner if any concerns or questions that need to be discussed. Not available 11/09/2015 12:27:00 12/21/2015 [id number] Follow-up sooner if any concerns or questions that need to be discussed. Not available 12/22/2015 00:03:22 Reason for Referral 2 MONTHS S/P RIGHT ACHILLES LENGTHENING. WORK STRETCHING AND STRENGTHENING OF THE ACHILLES AND CALF. Referring Physician: Gregoria Mixons, Encounter Date: 10/12/2015 CONTINUE TO WORK STRETCHING AND STRENGTHENING OF THE ACHILLES AND CALF. Referring Physician: Gregoria Mixons, Encounter Date: 12/21/2015 Results Created Date Observation Date Name Description Value Unit Range Abnormal Flag Note LastModifiedBy Organization Detail LastModifiedTime Result Notes None recorded. Problems Name Problem SNOMED Code Status Onset Date Resolution Date Notes Provider Name and Address Organization Details Recorded Time Foot-drop gait 43779145 Active [facility] 6 00:03:21 Equinus contracture of the ankle 647470352 Active [place] [facility] 6 13:20:37 Acquired cavus deformity of foot 69223020 Active 2016 Clifford Alcala MD [address] [facility],[address], [place], [address], [facility] 7 12:06:08 Problem Notes None recorded. Procedures Surgical History Date Name Laterality Status Provider Name and Address Organization Details Recorded Time 5 Casting Short Leg Non Weight Bearing completed Nurys SOARES [facility] 08/29/2015 13:36:56 5 TENOTOMY, ACHILLES TENDON (SURG) completed Demetra Manriquez [facility] 08/16/2015 11:58:58 Imaging Results None recorded. Procedure Notes None recorded. Medical Equipment None Reported. Allergies Allergen ID Allergen Name Allergen Category Reaction Reaction Severity Criticality Documentation Date Start Date Code Code System Note Provider Name and Address Organization Details Recorded Time Tylenol medicatio n Not available Not available Not available 05/02/2015 74485 3 RxNorm [place] Clifford [place] [facility] 5 17:29:44 56949 Metamucil medicatio n Not available Not available Not available 05/02/2015 6802 RxNorm [place] Clifford [place] [facility] 5 17:29:44 74040 methadone medicatio n Not available Not available Not available 05/02/2015 6813 RxNorm [place] [facility] 5 17:29:44 Medications Name Sig Start Date Stop Date Status Note LastModified by Organization Details LastModified Time cyclobenzapr ine 10 mg tablet TAKE 1 TABLET (ORAL) EVERY DAY AT BEDTIME (MUSCLE SPASM) FOR 10 DAYS CANNOT OPERATE ANY MACHINERY active Not Available Not Available No t Available amoxicillin 500 mg capsule TAKE 4 CAPSULES BY MOUTH 30 MINUTES PRIOR TO APPOINTMENT active Not Available Not Available Not Available venlafaxine ER 75 mg capsule,exte nded release 24 hr active Not Available Not Available Not Available ketoconazole 2 % shampoo active Not Available Not Available Not Available trazodone 50 mg tablet active Not Available Not Available No t Available nystatin 100,000 unit/gram topical ointment active Not Available Not Available Not Available tizanidine 4 mg tablet active Not Available Not Available No t Available fluconazole 150 mg tablet active Not Available Not Available Not Available liothyronine 25 mcg tablet active Not Available Not Available Not Available methylphenid ate 10 mg tablet active Not Available Not Available Not Available Nystop 100,000 unit/gram topical powder active Not Available Not Available Not Available sertraline 100 mg tablet TAKE 2 TABLETS BY MOUTH EVERY DAY active Not Available Not Available No t Available clonazepam 1 mg tablet active Not Available Not Available No t Available oxcarbazepin e 300 mg tablet active Not Available Not Available Not Available liothyronine 5 mcg tablet active Not Available Not Available Not Available amantadine HCl 100 mg capsule TAKE 1 CAPSULE BY MOUTH TWICE A DAY active Not Available Not Available No t Available bupropion HCl SR 100 mg tablet,12 hr sustained-re lease active Not Available Not Available Not Available oxycodone 15 mg tablet active Not Available Not Available No t Available levothyroxin e 75 mcg tablet active Not Available Not Available Not Available nystatin-tri amcinolone 100,000 unit/gram-0. 1 % topical ointment active Not Available Not Available Not Available levothyroxin e 100 mcg tablet active Not Available Not Available Not Available carbidopa 25 mg tablet active Not Available Not Available No t Available alprazolam 0.5 mg tablet TAKE 1 TABLET BY MOUTH EVERY DAY NEEDED active Not Available Not Available No t Available entacapone 200 mg tablet TAKE 1 TABLET BY MOUTH FOUR TIMES A DAY FOR 30 DAYS 90 active Not Available Not Available No t Available estradiol 1 mg tablet active Not Available Not Available No t Available oxycodone-ac etaminophen 10 mg-325 mg tablet active Not Available Not Available Not Available pantoprazole 40 mg tablet,delay ed release active Not Available Not Available N ot Available buspirone 30 mg tablet active Not Available Not Available No t Available levothyroxin e 125 mcg tablet TAKE 1 TABLET BY MOUTH EVERY DAY active Not Available Not Available No t Available triamcinolon e acetonide 0.1 % topical ointment active Not Available Not Available Not Available levothyroxin e 150 mcg tablet active Not Available Not Available Not Available gabapentin 300 mg capsule TAKE 1 CAPSULE BY MOUTH EVERYDAY AT BEDTIME active Not Available Not Available No t Available morphine ER 15 mg tablet,exten ded release active Not Available Not Available Not Available zolpidem 5 mg tablet TAKE 1 TABLET BY MOUTH EVERY DAY NEEDED SLEEP active Not Available Not Available No t Available Ecotrin 325 mg tablet,enter ic coated Take 1 tablet every day by oral route as directed for 60 days. 2014 active Not Available Not Available Not Avai lable zolpidem 10 mg tablet active Not Available Not Available No t Available carbidopa 25 mg-levodopa 100 mg tablet TAKE 2 PILLS AT 5.3 AM AND THEN 1.5 TABLET EVERY 4HRS ORALLY DIRECTED 8 PILLS A DAY 30 DAYS active Not Available Not Available No t Available levothyroxin e 112 mcg tablet active Not Available Not Available Not Available Ventolin HFA 90 mcg/actuatio n aerosol inhaler active Not Available Not Available Not Available tobramycin 0.3 %-dexamethas one 0.1 % eye drops,suspen dottie active Not Available Not Available Not Available oxymorphone ER 5 mg tablet,exten ded release,12 hr active Not Available Not Available Not Available Pristiq 50 mg tablet,exten ded release active Not Available Not Available Not Available Pristiq 100 mg tablet,exten ded release active Not Available Not Available Not Available OxyContin 20 mg tablet,crush resistant,ex tended release active Not Available Not Available Not Available Trintellix 20 mg tablet active Not Available Not Available Not Available Vitals None Recorded Social History Question Answer Notes LastModified by Organizat ion Details LastModified Time Tobacco Smoking Status Never Smoker Not Available [facility] 2020 03:22:20 Auto Related Injury? No Information not available 05/04/2015 How Much Tobacco Do You Chew? None [id number] Information not available 2020 Marital Status [email or web address] Informatio n not available 05/02/2015 How Much Tobacco Do You Smoke? No [id number] Information not available 2020 Work Related Injury? No Information not available 05/04/2015 Sex: Unknown Functional Status Question Answer Note LastModified by Organization D etails LastModified Time What is your level of alcohol consumption? None [id number] Information not available 2020 Are you currently employed? No [id number] Information not available 2020 Mental Status None recorded. Family History Relationship Description Onset Age of this Age Resolved Age Notes LastModified by Organization Details LastModified Time Mother Malignant neoplastic disease [email or web address] Not available 2015 12:26:25 Brother Crohn's disease [email or web address] Not available 2015 12:26:25 Medical History Condition Response Irregular Heart Beat Y Fibromyalgia Y Mental Illness Y Depression Y Asthma Y Chronic Back Pain Y Gynecological HistoryNo gynecological history recorded. Obstetrics History GPAL:G 0 P 0 0 0 0 Past Encounters Encounter ID Performer Location Encounter Start Date Encounter Closed Date Diagnosis/Indication Diagnosis SNOMED-CT Code Diagnosis ICD10 Code Diagnosis IMO Codes Diagnosis Note [id number] Clifford Alcala MD [facility] [address] [place] [address] 05/02/2015 17:20:58 05/02/2015 18:16:59 Foot-drop gait 13340148 Equinus co ntracture of the ankle 715868910 [id number] RAHEEM SANTOYO CP SWATCHER [address] [place] [address] 05/30/2015 17:55:47 05/31/2015 11:15:59 [id number] Clifford Alcala MD [facility] [address] [place] [address] 06/06/2015 16:36:03 06/06/2015 17:03:19 Foot-drop gait 17277936 Equinus co ntracture of the ankle 376334554 [id number] Clifford Alcala MD [facility] [address] [place] [address] 07/04/2015 17:13:51 07/04/2015 17:42:48 Foot-drop gait 45038333 R26.89 Equinus co ntracture of the ankle 052287191 M24.571 [id number] NURYS ROSA PA-C [facility] [address] [place] [address] 08/29/2015 12:35:44 08/29/2015 14:01:00 Foot-drop gait 83192999 R26.89 Equinus co ntracture of the ankle 780954312 M24.571 Postoperative care 70918 9007 Z48.89 [id number] NURYS ROSA PA-C [facility] [address] [place] [address] 09/12/2015 14:15:24 09/12/2015 15:25:21 Foot-drop gait 77625439 R26.89 Equinus co ntracture of the ankle 597179148 M24.571 Postoperative care 34570 9007 Z48.89 [id number] NURYS ROSA PA-C [facility] [address] [place] [address] 10/12/2015 12:19:50 10/12/2015 12:44:41 Foot-drop gait 62032960 R26.89 Equinus co ntracture of the ankle 012702520 M24.571 Postoperative care 52071 9007 Z48.89 [id number] NURYS ROSA PA-C [facility] [address] [place] [address] 11/09/2015 12:02:30 11/09/2015 12:31:04 Equinus contracture of the ankle 452857173 M24.571 Foot-drop gait 73945218 R26.89 Postoperative care 58474 9007 Z48.89 [id number] NURYS ROSA PA-C [facility] [address] [place] [address] 12/21/2015 12:14:00 12/21/2015 12:45:36 Foot-drop gait 50999816 R26.89 Equinus co ntracture of the ankle 287138762 M24.571 [id number] NURYS ROSA PA-C [facility] [address] [place] [address] 03/21/2016 12:02:23 03/21/2016 12:29:36 Equinus contracture of the ankle 615072613 M24.571 Foot-drop gait 46056681 R26.89 This has resolved [id number] Clifford Alcala MD [facility] [address] [place] [address] 10/10/2016 11:28:46 10/10/2016 12:08:04 Acquired cavus deformity of foot 58180555 M21.6X1 M21.6X2 Health Concerns Section Related Observation LastModified by Organization Detai ls LastModified Time None Recorded Concern Status LastModified by Organization Details LastModified Time None Recorded Advance Directives Directive None Recorded Payers Insurance Date Sequence Insurance Name Policy Number Policy Martinez Covered Member ID Martinez Member ID Guarantor Name 04/02/2025 1 [employer] (MEDICARE REPLACEMENT/A DVANTAGE - PPO) [id number] Rosa Goodmanphillipx [id number] Rosa Hafsa Herphillipx 06/06/2015 1 [employer] [id number] Rosa Jackson Heroux [id number] Rosa Goodmanphillipx Notes Date Note Type Note Provider Name and Address Organization Details Recorded Time 10/12/2015 text/html Rosa is a 50-year-old female patient who is here for postoperative evaluation of her right, open tendo-Achilles lengthening, now out about 2 months. Her pain is well-controlled. She is nonweightbearing and wearing a CAM boot. She has no new complaints. She presents for postoperative evaluation. [place] [facility] 10/12/2015 16:25:41 11/09/2015 text/html Rosa is a 50-year-old female patient who is here for postoperative evaluation of her right, open tendo-Achilles lengthening which was done just under 3 months ago. Her pain is well-controlled. She is wearing a CAM boot, has been WBAT and working with physical therapy these last few weeks. She has no new complaints. She presents for postoperative evaluation. [place] [facility] 11/09/2015 13:21:03 12/21/2015 text/html Rosa is a 50-year-old female who is here for follow-up of her open right Achilles tendon lengthening and repair. She is now 4 months out from surgery. She presents today in a walking boot. Has continued to work with physical therapy and feels that she is getting a significant amount of improvement. Her pain is well-controlled. She is very happy with her result today. [place] [facility] 12/22/2015 00:03:31 03/21/2016 text/html Rosa is a 50-year-old female who is here for follow-up of her open right Achilles tendon lengthening and repair on 08/14/15. She is now 7 months out from surgery and presents today in a normal walking shoe. Has continued to work with physical therapy and feels that she is getting a significant amount of improvement. She is now walking with a cane. Her pain is well-controlled. She is very happy with her result. [place] [facility] 03/21/2016 13:21:03 10/10/2016 text/html Rosa presents today for repeat examination of her right Achilles tendon repair. Since the time of her last visit she has been in physical therapy and has been making very nice gains. She is hopeful that in the future she will be able to run again. Her only complaint is that she has pain on the lateral border of the foot. This comes and goes and typically last a few weeks when it is there. Clifford Alcala MD [address] [facility], [place], [address], [place] [facility] 10/10/2016 12:43:40 OBGyn Episode No OBEpisode recorded.
== END 2025-09-14 13:35 | disposition home or self-care (01) ==
LOC: HO.HSM 13:10
PROVIDERS: PCP Internal Medicine; Visit Provider Psychiatry & Neurology Neurology
DX: G20.B2 Parkinson's disease with dyskinesia, with fluctuations (principal)
CPT/HCPCS: 99214